=== PATIENT | female | born 1935 | race Caucasian/White ===

== ENCOUNTER 2019-03-13 17:42 | Emergency (ER) | payer MEDICARE ==
[~2019-03-13] VITALS: Ht 172.7 cm; Wt 76.5 kg
[~2019-03-13 17:42] MED LIST: ALPR1TAB PO; CELE200C PO; COU1T PO; DILT240C90 PO; FLEC100T PO; LEVO50TA8 PO; SERT100T10 PO; WARF4TAB69 PF
--- NOTE | 2019-03-13 19:07 | NUR ---
PT HERE WITH C/O RLE EDEMA (AT 4+) AND WEEPING, HAS HAD FOR "WEEKS", ALSO HAD APPROX ONE YEAR AGO AND PMD RECOMMENDED COMPRESSION STOCKINGS FOR CHRONIC LE VASCULAR INSUFFICIENCY. LLE ALSO EDEMATOUS WITH 1-2+ PITTING EDEMA.
[2019-03-13 21:07] LABS: ALANINE AMINOTRANSFERASE 21 U/L (12-78); ALBUMIN 3.4 G/DL (3.4-5.0); ALBUMIN/GLOBULIN RATIO 1.1 (1.1-1.5); ALKALINE PHOSPHATASE 74 IU/L (46-116); ANION GAP 9 (8-16); ASPARTATE AMINO TRANSFERASE 20 U/L (10-37); BILIRUBIN,TOTAL 0.4 MG/DL (0.1-1.0); BLOOD UREA NITROGEN 33 MG/DL (7-18); BUN/CREATININE RATIO 29.2 (6.6-38.0); CALCIUM 8.9 MG/DL (8.5-10.1); CHLORIDE 105 MMOL/L (99-107); CREATININE 1.13 MG/DL (0.40-0.90); GLUCOSE 91 MG/DL (70-104); SODIUM 140 MMOL/L (135-145); TOTAL CARBON DIOXIDE 25.9 MMOL/L (24-32); TOTAL PROTEIN 6.5 G/DL (6.4-8.2); eGFR 46 ML/MIN
[2019-03-13 21:25] LABS: BASOPHILS # (AUTO) 0.1 X10'3 (0-0.2); BASOPHILS % (AUTO) 1.2 % (0-1); EOSINOPHILS # (AUTO) 0.4 X10'3 (0-0.9); EOSINOPHILS % (AUTO) 4.8 % (0-6); HEMATOCRIT 38.4 % (35.0-45.0); HEMOGLOBIN 12.5 g/dl (12.0-16.0); LYMPHOCYTES # (AUTO) 1.9 X10'3 (1.1-4.8); MEAN CORPUSCULAR HEMOGLOBIN 29.8 PG (27.0-31.0); MEAN CORPUSCULAR HGB CONC 32.6 g/dL (33.0-36.5); MEAN CORPUSCULAR VOLUME 91.3 FL (78-98); MEAN PLATELET VOLUME 8.7 FL (7.4-10.4); MONOCYTES # (AUTO) 0.8 X10'3 (0-0.9); MONOCYTES % (AUTO) 9.1 % (2-12); NEUTROPHILS # (AUTO) 5.9 X10'3 (1.8-7.7); NEUTROPHILS % (AUTO) 63.9 % (42-75); PLATELET COUNT 185 X10'3 (140-440); RED CELL DISTRIBUTION WIDTH 13.6 % (11.5-14.5); WHITE BLOOD COUNT 9.2 X10'3 (4.5-11.0)
[2019-03-13] MEDS ORDERED: CEPH-572 PO (23:04)
[2019-03-13 23:11] VITALS: BP 160/73
== END 2019-03-13 23:12 | disposition home or self-care (01) ==
LOC: ER 17:43
DX: L03.115 Cellulitis of right lower limb (principal); I48.91 Unspecified atrial fibrillation; G89.29 Other chronic pain; M54.9 Dorsalgia, unspecified; Z86.73 Personal history of transient ischemic attack (TIA), and cerebral infarction without residual deficits
CPT/HCPCS: 36415; 80053; 85025; 93971; 99284

== ENCOUNTER 2019-03-17 17:18 | Emergency (ER) | payer MEDICARE ==
[~2019-03-17] VITALS: Ht 172.7 cm; Wt 68.0 kg
[~2019-03-17 17:18] MED LIST changes: +CEPH-572 PO
[2019-03-17 20:45] LABS: BASOPHILS # (AUTO) 0.1 X10'3 (0-0.2); EOSINOPHILS # (AUTO) 0.3 X10'3 (0-0.9); EOSINOPHILS % (AUTO) 3.7 % (0-6); HEMATOCRIT 39.1 % (35.0-45.0); HEMOGLOBIN 12.9 g/dl (12.0-16.0); LYMPHOCYTES # (AUTO) 1.6 X10'3 (1.1-4.8); LYMPHOCYTES % (AUTO) 17.5 % (21-51); MEAN CORPUSCULAR HEMOGLOBIN 29.8 PG (27.0-31.0); MEAN CORPUSCULAR HGB CONC 32.9 g/dL (33.0-36.5); MEAN CORPUSCULAR VOLUME 90.5 FL (78-98); MEAN PLATELET VOLUME 8.5 FL (7.4-10.4); MONOCYTES # (AUTO) 0.9 X10'3 (0-0.9); MONOCYTES % (AUTO) 9.4 % (2-12); NEUTROPHILS # (AUTO) 6.3 X10'3 (1.8-7.7); NEUTROPHILS % (AUTO) 68.4 % (42-75); PLATELET COUNT 183 X10'3 (140-440); RED BLOOD COUNT 4.33 X10'6 (4.20-5.60); RED CELL DISTRIBUTION WIDTH 13.7 % (11.5-14.5); WHITE BLOOD COUNT 9.1 X10'3 (4.5-11.0)
[2019-03-17 20:55] LABS: ALANINE AMINOTRANSFERASE 24 U/L (12-78); ALBUMIN 3.4 G/DL (3.4-5.0); ALBUMIN/GLOBULIN RATIO 1.1 (1.1-1.5); ALKALINE PHOSPHATASE 76 IU/L (46-116); ANION GAP 8 (8-16); ASPARTATE AMINO TRANSFERASE 21 U/L (10-37); BILIRUBIN,TOTAL 0.4 MG/DL (0.1-1.0); BLOOD UREA NITROGEN 28 MG/DL (7-18); CALCIUM 9.1 MG/DL (8.5-10.1); CHLORIDE 104 MMOL/L (99-107); CREATININE 1.27 MG/DL (0.40-0.90); GLUCOSE 90 MG/DL (70-104); MAGNESIUM 1.9 MG/DL (1.5-2.4); POTASSIUM 4.1 MMOL/L (3.5-5.1); SODIUM 140 MMOL/L (135-145); TOTAL CARBON DIOXIDE 28.2 MMOL/L (24-32); TOTAL PROTEIN 6.6 G/DL (6.4-8.2); eGFR 40 ML/MIN
[2019-03-17 21:05] LABS: D-DIMER 0.27 MG/L FEU (0-0.50)
[2019-03-17] MEDS ORDERED: SULF1TAB49 PO ×2 (21:05→21:15)
[2019-03-17 21:29] VITALS: BP 138/61
== END 2019-03-17 21:47 | disposition home or self-care (01) ==
LOC: ER 17:20
DX: L03.115 Cellulitis of right lower limb (principal); R60.0 Localized edema; N28.9 Disorder of kidney and ureter, unspecified; Z86.73 Personal history of transient ischemic attack (TIA), and cerebral infarction without residual deficits; I48.91 Unspecified atrial fibrillation; G89.29 Other chronic pain; Z90.49 Acquired absence of other specified parts of digestive tract; Z79.01 Long term (current) use of anticoagulants; Z79.899 Other long term (current) drug therapy; Z60.2 Problems related to living alone
CPT/HCPCS: 36415; 80053; 83605; 83735; 84145; 85025; 85379; 87040; 99284

== ENCOUNTER 2019-03-25 18:56 | Inpatient (IN) | payer MEDICARE ==
[~2019-03-25] VITALS: Ht 172.7 cm; Wt 85.7 kg
[~2019-03-25 18:56] MED LIST changes: -CEPH-572 PO; +SULF1TAB49 PO
[2019-03-25] MEDS ORDERED: CefTRIAXone 2gm/D5W 50ml 50 ML IV ONE (19:55)
[2019-03-25 20:33] LABS: BASOPHILS # (AUTO) 0.1 X10'3 (0-0.2); BASOPHILS % (AUTO) 0.8 % (0-1); EOSINOPHILS # (AUTO) 0.4 X10'3 (0-0.9); EOSINOPHILS % (AUTO) 4.3 % (0-6); HEMATOCRIT 36.7 % (35.0-45.0); HEMOGLOBIN 12.5 g/dl (12.0-16.0); LYMPHOCYTES # (AUTO) 1.2 X10'3 (1.1-4.8); LYMPHOCYTES % (AUTO) 14.2 % (21-51); MEAN CORPUSCULAR HEMOGLOBIN 30.5 PG (27.0-31.0); MEAN CORPUSCULAR VOLUME 89.6 FL (78-98); MEAN PLATELET VOLUME 8.6 FL (7.4-10.4); MONOCYTES # (AUTO) 0.8 X10'3 (0-0.9); MONOCYTES % (AUTO) 9.5 % (2-12); NEUTROPHILS # (AUTO) 6.1 X10'3 (1.8-7.7); NEUTROPHILS % (AUTO) 71.2 % (42-75); PLATELET COUNT 183 X10'3 (140-440); RED CELL DISTRIBUTION WIDTH 13.5 % (11.5-14.5); WHITE BLOOD COUNT 8.5 X10'3 (4.5-11.0)
[2019-03-25 20:48] LABS: ALANINE AMINOTRANSFERASE 25 U/L (12-78); ALBUMIN 3.6 G/DL (3.4-5.0); ALBUMIN/GLOBULIN RATIO 1.1 (1.1-1.5); ALKALINE PHOSPHATASE 85 IU/L (46-116); ANION GAP 10 (8-16); ASPARTATE AMINO TRANSFERASE 23 U/L (10-37); BILIRUBIN,TOTAL 0.3 MG/DL (0.1-1.0); BLOOD UREA NITROGEN 37 MG/DL (7-18); BUN/CREATININE RATIO 20.9 (6.6-38.0); CALCIUM 9.2 MG/DL (8.5-10.1); CHLORIDE 102 MMOL/L (99-107); CREATININE 1.77 MG/DL (0.40-0.90); GLUCOSE 90 MG/DL (70-104); POTASSIUM 4.4 MMOL/L (3.5-5.1); SODIUM 136 MMOL/L (135-145); TOTAL PROTEIN 6.9 G/DL (6.4-8.2); eGFR 28 ML/MIN
[2019-03-25 21:06] LABS: INR 3.7 INR; PARTIAL THROMBOPLASTIN TIME 61 SECONDS (22-32)
[2019-03-25] MEDS ORDERED: docusate sod 100mg capsule PO PRN (21:15)
[2019-03-25] MEDS ORDERED: levoFLOXACIN-Levaquin 750MG/D5 150 ML IV ONE (21:15)
[2019-03-25] MEDS ORDERED: HYDROcodone/acetaminophen 10/325mg tab PO PRN (21:15)
[2019-03-25] MEDS ORDERED: HYDROcodone/acetaminophen 5mg/325mg tablet PO PRN (21:15)
[2019-03-25] MEDS ORDERED: magnesium 2GM in 50ml NS 50 ML IV PRN (21:15)
[2019-03-25] MEDS ORDERED: mag hydrox/Alum hydrox/simeth 30ml oral suspension PO PRN (21:15)
[2019-03-25] MEDS ORDERED: potassium Cl 20 mEq SR tablet PO PRN ×2 (21:15)
[2019-03-25] MEDS ORDERED: magnesium Cl slow-release 64mg tablet PO PRN (21:15)
[2019-03-25] MEDS ORDERED: potassium Cl 40MEQ/NS 500ml 500 ML IV PRN ×2 (21:15)
[2019-03-25] MEDS ORDERED: magnesium 4gm in 100ml NS 100 ML IV PRN (21:15)
[2019-03-25] MEDS ORDERED: acetaminophen 325mg tablet PO PRN ×2 (21:15)
[2019-03-25] MEDS ORDERED: ondansetron/PF 4mg/2ml inj IV PRN (21:15)
[2019-03-25 22:30] VITALS: BP 101/56
--- NOTE | 2019-03-25 22:30 | NUR ---
Patient was admitted to the unit from Ed. Patient has been ambulating to to toilet with walker and the vital signs are within normal limits. Patient reports no pain and is resting.
[2019-03-25] MEDS ORDERED: COU3T PO (23:30)
[2019-03-25] MEDS ORDERED: normal saline 1000ml 1,000 ML IV SCH (23:45)
[2019-03-26] MEDS: methylPREDNISolone sod succ 125mg/2ml vial IV SCH ×4 (00:33→15:54)
[2019-03-26] MEDS: normal saline 1000ml 1,000 ML IV SCH ×3 (00:34→12:14)
--- NOTE | 2019-03-26 01:20 | NUR ---
Photos of the affected limbs were taking and the affected areas were marked.
[2019-03-26] MEDS: fluconazole 100mg tablet PO SCH ×2 (01:32→07:47)
[2019-03-26] MEDS ORDERED: diltiazem CD 120mg capsule (once-daily) PO ONE (01:50)
[2019-03-26] MEDS ORDERED: flecainide 50mg tablet PO ONE (01:50)
[2019-03-26] MEDS: ALPRAZolam 0.5mg tablet PO PRN ×2 (01:54→09:42)
[2019-03-26 02:43] LABS: CLARITY,URINE CLEAR (Clear); COLOR,URINE YELLOW (Yellow); GLUCOSE, URINE NEGATIVE (Neg); KETONES,URINE NEGATIVE (Neg); LEUKOCYTE ESTERASE ,URINE NEGATIVE (Neg); NITRITES, URINE NEGATIVE (Neg); OCCULT BLOOD,URINE TRACE-INTACT (Neg); PH,URINE 5.5 (4.8-8.0); PROTEIN,URINE NEGATIVE (Neg); UROBILINOGEN,URINE 0.2 E.U/dL (0.2-1.0)
[2019-03-26 02:58] LABS: UA COLLECTION TYPE VOIDED
[2019-03-26 03:00] VITALS: BP 108/64
[2019-03-26 03:00] LABS: BACTERIA,URINE NONE SEEN /HPF (Neg); RBC,URINE NONE SEEN /HPF (0-2); SQUAMOUS EPITHELIAL CELL,UR FEW /LPF (FEW); WBC,URINE 0-4 /HPF (0-4)
[2019-03-26 05:21] LABS: BASOPHILS % (AUTO) 0.7 % (0-1); EOSINOPHILS # (AUTO) 0.1 X10'3 (0-0.9); EOSINOPHILS % (AUTO) 1.4 % (0-6); HEMATOCRIT 35.2 % (35.0-45.0); HEMOGLOBIN 11.7 g/dl (12.0-16.0); LYMPHOCYTES # (AUTO) 0.6 X10'3 (1.1-4.8); LYMPHOCYTES % (AUTO) 9.3 % (21-51); MEAN CORPUSCULAR HEMOGLOBIN 30.1 PG (27.0-31.0); MEAN CORPUSCULAR HGB CONC 33.4 g/dL (33.0-36.5); MEAN CORPUSCULAR VOLUME 90.3 FL (78-98); MEAN PLATELET VOLUME 8.7 FL (7.4-10.4); MONOCYTES # (AUTO) 0.1 X10'3 (0-0.9); MONOCYTES % (AUTO) 1.8 % (2-12); NEUTROPHILS # (AUTO) 5.9 X10'3 (1.8-7.7); NEUTROPHILS % (AUTO) 86.8 % (42-75); PLATELET COUNT 169 X10'3 (140-440); RED BLOOD COUNT 3.89 X10'6 (4.20-5.60); RED CELL DISTRIBUTION WIDTH 13.7 % (11.5-14.5); WHITE BLOOD COUNT 6.8 X10'3 (4.5-11.0)
[2019-03-26 05:34] LABS: ALANINE AMINOTRANSFERASE 23 U/L (12-78); ALBUMIN/GLOBULIN RATIO 0.9 (1.1-1.5); ALKALINE PHOSPHATASE 76 IU/L (46-116); ANION GAP 9 (8-16); ASPARTATE AMINO TRANSFERASE 21 U/L (10-37); BILIRUBIN,TOTAL 0.3 MG/DL (0.1-1.0); BLOOD UREA NITROGEN 32 MG/DL (7-18); BUN/CREATININE RATIO 21.3 (6.6-38.0); CALCIUM 9.3 MG/DL (8.5-10.1); CHLORIDE 105 MMOL/L (99-107); GLUCOSE 127 MG/DL (70-104); POTASSIUM 4.4 MMOL/L (3.5-5.1); SODIUM 139 MMOL/L (135-145); TOTAL CARBON DIOXIDE 24.6 MMOL/L (24-32); TOTAL PROTEIN 6.2 G/DL (6.4-8.2); eGFR 33 ML/MIN
--- NOTE | 2019-03-26 06:22 | NUR ---
Problems reprioritized. Patient report given to Georgina WALLACE, questions answered & plan of care reviewed with Sydnie WALLACE. Patient is resting.
--- NOTE | 2019-03-26 06:53 | NUR ---
Patient in room [facility] 356. I have received report from DEVIN WALLACE and had the opportunity to ask questions and assume patient care.
[2019-03-26 07:00] VITALS: BP 109/50
[2019-03-26] MEDS: CefTRIAXone/D5W-Rocephin 1gm 50 ML IV SCH (07:45)
[2019-03-26] MEDS: levoTHYROXINE 25mcg tablet PO SCH (07:46)
[2019-03-26] MEDS: flecainide 50mg tablet PO SCH ×2 (07:46→20:33)
[2019-03-26] MEDS: diltiazem CD 120mg capsule (once-daily) PO SCH ×2 (07:47→20:34)
[2019-03-26] MEDS ORDERED: sertraline 50mg tablet PO SCH ×2 (08:00→10:50)
[2019-03-26] MEDS ORDERED: diltiazem CD 120mg capsule (once-daily) PO SCH (08:00)
[2019-03-26] MEDS: K and/or MAG REPLACEMENT MC SCH (08:00)
[2019-03-26] MEDS ORDERED: SERT50TA10 PO (08:15)
[2019-03-26] MEDS ORDERED: ALPR1TAB7 PO (08:15)
[2019-03-26] MEDS ORDERED: GABA-530 PO (08:22)
[2019-03-26 09:45] LABS: INR 3.1 INR
--- NOTE | 2019-03-26 10:02 | NUR ---
patient c/o anxiety given xanax as per emar. will continue to monitor
[2019-03-26 11:27] VITALS: BP 118/70
[2019-03-26] MEDS: gabapentin 100mg capsule PO SCH ×2 (13:41→20:32)
--- NOTE | 2019-03-26 18:30 | NUR ---
Patient in room [facility] 356. I have received report from Georgina WALLACE and had the opportunity to ask questions and assume patient care.
--- NOTE | 2019-03-26 18:30 | NUR ---
Patient in room [facility] 356. I have received report from RODRIGO Erickson and had the opportunity to ask questions and assume patient care with RODRIGO Ramesh. Pt resting in room, no complaints. Addendum: 03/27/19 at 0009 by Aziza Reynoso RN Amended: Links added.
--- NOTE | 2019-03-26 18:31 | NUR ---
Problems reprioritized. Patient report given, questions answered & plan of care reviewed with Zachary WALLACE.
[2019-03-26 20:00] VITALS: BP 108/75
[2019-03-26] MEDS ORDERED: non-formulary drug (Alprazolam 1 MG) PO SCH (20:00)
[2019-03-26 20:30] VITALS: BP 126/62
[2019-03-26] MEDS: lactobacillus rhamnosus 10,000 MMU CELLS/CAPSULE PO SCH (20:31)
[2019-03-26] MEDS: ALPRAZolam 0.5mg tablet PO SCH (20:33)
[2019-03-27] VITALS: BP 129/43
[2019-03-27] MEDS: methylPREDNISolone sod succ 125mg/2ml vial IV SCH ×2 (00:11→08:53)
[2019-03-27] MEDS: normal saline 1000ml 1,000 ML IV SCH ×3 (00:26→23:26)
[2019-03-27 04:12] LABS: OCCULT BLOOD STOOL NEGATIVE (Neg)
[2019-03-27 04:52] LABS: BASOPHILS % (AUTO) 0.1 % (0-1); EOSINOPHILS % (AUTO) 0 % (0-6); HEMATOCRIT 32.3 % (35.0-45.0); HEMOGLOBIN 10.7 g/dl (12.0-16.0); LYMPHOCYTES # (AUTO) 0.8 X10'3 (1.1-4.8); LYMPHOCYTES % (AUTO) 6.7 % (21-51); MEAN CORPUSCULAR HEMOGLOBIN 30.1 PG (27.0-31.0); MEAN CORPUSCULAR HGB CONC 33.3 g/dL (33.0-36.5); MEAN CORPUSCULAR VOLUME 90.3 FL (78-98); MONOCYTES # (AUTO) 0.2 X10'3 (0-0.9); MONOCYTES % (AUTO) 1.8 % (2-12); NEUTROPHILS # (AUTO) 10.9 X10'3 (1.8-7.7); NEUTROPHILS % (AUTO) 91.4 % (42-75); PLATELET COUNT 164 X10'3 (140-440); RED BLOOD COUNT 3.57 X10'6 (4.20-5.60); RED CELL DISTRIBUTION WIDTH 13.8 % (11.5-14.5); WHITE BLOOD COUNT 11.9 X10'3 (4.5-11.0)
--- NOTE | 2019-03-27 05:00 | NUR ---
AGREE WITH NURSING ASSESSMENT. Addendum: 03/27/19 at 0642 by Aziza Reynoso RN Amended: Links added.
[2019-03-27 05:14] LABS: ALANINE AMINOTRANSFERASE 33 U/L (12-78); ALBUMIN 2.9 G/DL (3.4-5.0); ALBUMIN/GLOBULIN RATIO 0.9 (1.1-1.5); ALKALINE PHOSPHATASE 67 IU/L (46-116); ANION GAP 10 (8-16); ASPARTATE AMINO TRANSFERASE 29 U/L (10-37); BILIRUBIN,TOTAL 0.3 MG/DL (0.1-1.0); BLOOD UREA NITROGEN 32 MG/DL (7-18); BUN/CREATININE RATIO 26.2 (6.6-38.0); CALCIUM 8.4 MG/DL (8.5-10.1); CHLORIDE 104 MMOL/L (99-107); CREATININE 1.22 MG/DL (0.40-0.90); GLUCOSE 191 MG/DL (70-104); POTASSIUM 4.2 MMOL/L (3.5-5.1); SODIUM 137 MMOL/L (135-145); TOTAL CARBON DIOXIDE 22.7 MMOL/L (24-32); eGFR 42 ML/MIN
[2019-03-27 05:23] LABS: INR 2.3 INR
--- NOTE | 2019-03-27 06:35 | NUR ---
Problems reprioritized. Patient report given, questions answered & plan of care reviewed with Ofe WALLACE.
[2019-03-27 07:00] VITALS: BP 125/51
[2019-03-27] MEDS ORDERED: warfarin 3mg tablet PO SCH (08:00)
[2019-03-27] MEDS ORDERED: levoFLOXACIN 750MG TABLET PO SCH (08:00)
[2019-03-27] MEDS: K and/or MAG REPLACEMENT MC SCH (08:00)
[2019-03-27] MEDS: fluconazole 100mg tablet PO SCH (08:53)
[2019-03-27] MEDS: CefTRIAXone/D5W-Rocephin 1gm 50 ML IV SCH (08:53)
[2019-03-27] MEDS: gabapentin 100mg capsule PO SCH ×3 (08:53→21:21)
[2019-03-27] MEDS: ALPRAZolam 0.5mg tablet PO SCH ×2 (08:53→20:22)
[2019-03-27] MEDS: flecainide 50mg tablet PO SCH ×2 (08:54→20:22)
[2019-03-27] MEDS: lactobacillus rhamnosus 10,000 MMU CELLS/CAPSULE PO SCH ×2 (08:54→20:22)
[2019-03-27] MEDS: levoTHYROXINE 25mcg tablet PO SCH (08:54)
[2019-03-27] MEDS: diltiazem CD 120mg capsule (once-daily) PO SCH ×2 (08:54→20:22)
[2019-03-27 12:12] VITALS: BP 123/52
[2019-03-27] MEDS: sertraline 50mg tablet PO SCH (14:59)
--- NOTE | 2019-03-27 18:11 | NUR ---
Problems reprioritized. Patient report given, questions answered & plan of care reviewed with Sydnie Richter
--- NOTE | 2019-03-27 18:53 | NUR ---
Patient in room [facility] 356. I have received report from RODRIGO Arzola and had the opportunity to ask questions and assume patient care. Addendum: 03/27/19 at 1854 by Ellie Swain RN Amended: Links added.
[2019-03-27 19:00] VITALS: BP 143/65
[2019-03-27] MEDS: triamcinolone acetonide 0.5% cream 15gm TP SCH (20:00)
[2019-03-27] MEDS ORDERED: warfarin 3mg tablet PO ONE (21:00)
--- NOTE | 2019-03-27 23:01 | NUR ---
Patient in room [facility] 356. I have received report from RODRIGO Villareal and had the opportunity to ask questions and assume patient care.
[2019-03-28 00:27] VITALS: BP 136/61
[2019-03-28 05:26] LABS: BASOPHILS % (AUTO) 0.1 % (0-1); EOSINOPHILS % (AUTO) 0 % (0-6); HEMATOCRIT 32.8 % (35.0-45.0); HEMOGLOBIN 10.9 g/dl (12.0-16.0); LYMPHOCYTES # (AUTO) 0.8 X10'3 (1.1-4.8); LYMPHOCYTES % (AUTO) 4.5 % (21-51); MEAN CORPUSCULAR HEMOGLOBIN 30.1 PG (27.0-31.0); MEAN CORPUSCULAR HGB CONC 33.1 g/dL (33.0-36.5); MEAN CORPUSCULAR VOLUME 91.1 FL (78-98); MEAN PLATELET VOLUME 8.9 FL (7.4-10.4); MONOCYTES # (AUTO) 0.8 X10'3 (0-0.9); MONOCYTES % (AUTO) 4.5 % (2-12); NEUTROPHILS # (AUTO) 15.5 X10'3 (1.8-7.7); NEUTROPHILS % (AUTO) 90.9 % (42-75); PLATELET COUNT 190 X10'3 (140-440); RED BLOOD COUNT 3.61 X10'6 (4.20-5.60); RED CELL DISTRIBUTION WIDTH 13.9 % (11.5-14.5)
[2019-03-28 05:31] LABS: INR 1.9 INR
[2019-03-28 05:57] LABS: ALANINE AMINOTRANSFERASE 35 U/L (12-78); ALBUMIN 2.9 G/DL (3.4-5.0); ALBUMIN/GLOBULIN RATIO 0.9 (1.1-1.5); ALKALINE PHOSPHATASE 65 IU/L (46-116); ANION GAP 10 (8-16); ASPARTATE AMINO TRANSFERASE 25 U/L (10-37); BILIRUBIN,TOTAL 0.2 MG/DL (0.1-1.0); BLOOD UREA NITROGEN 35 MG/DL (7-18); BUN/CREATININE RATIO 28.2 (6.6-38.0); CALCIUM 8.3 MG/DL (8.5-10.1); CHLORIDE 106 MMOL/L (99-107); CREATININE 1.24 MG/DL (0.40-0.90); GLUCOSE 149 MG/DL (70-104); MAGNESIUM 2.1 MG/DL (1.5-2.4); POTASSIUM 4.3 MMOL/L (3.5-5.1); SODIUM 138 MMOL/L (135-145); TOTAL CARBON DIOXIDE 22.3 MMOL/L (24-32); eGFR 42 ML/MIN
--- NOTE | 2019-03-28 06:00 | NUR ---
RECEIVED REORT FROM VIJAY WALLACE
--- NOTE | 2019-03-28 06:36 | NUR ---
Problems reprioritized. Patient report given, questions answered & plan of care reviewed with RODRIGO SETH.
[2019-03-28 07:26] VITALS: BP 144/65
[2019-03-28] MEDS: triamcinolone acetonide 0.5% cream 15gm TP SCH ×2 (08:00→20:02)
[2019-03-28] MEDS: diltiazem CD 120mg capsule (once-daily) PO SCH ×2 (08:00→20:02)
[2019-03-28] MEDS: K and/or MAG REPLACEMENT MC SCH (08:00)
[2019-03-28] MEDS: gabapentin 100mg capsule PO SCH ×3 (09:27→21:03)
[2019-03-28] MEDS: flecainide 50mg tablet PO SCH ×2 (09:27→20:03)
[2019-03-28] MEDS: levoTHYROXINE 25mcg tablet PO SCH (09:27)
[2019-03-28] MEDS: ALPRAZolam 0.5mg tablet PO SCH ×2 (09:27→20:00)
[2019-03-28] MEDS: lactobacillus rhamnosus 10,000 MMU CELLS/CAPSULE PO SCH ×2 (09:27→20:02)
[2019-03-28] MEDS: normal saline 1000ml 1,000 ML IV SCH ×2 (09:28→20:02)
--- NOTE | 2019-03-28 09:37 | NUR ---
SHADI NOT AVAIALABLE FOR THIS PT YET. WILL ADMIN WHEN AVAILABLE.
[2019-03-28 11:00] VITALS: BP 137/62
[2019-03-28] MEDS: sertraline 50mg tablet PO SCH (15:00)
--- NOTE | 2019-03-28 18:31 | NUR ---
Patient in room [facility] 356. I have received report from RODRIGO Manzanares and had the opportunity to ask questions and assume patient care. Addendum: 03/28/19 at 1832 by Ellie Swain RN Amended: Links added.
[2019-03-28 20:00] VITALS: BP 143/58
[2019-03-28] MEDS ORDERED: warfarin 4mg tablet PO ONE (21:00)
[2019-03-28] MEDS: ALPRAZolam 0.5mg tablet PO PRN (21:03)
--- NOTE | 2019-03-28 21:05 | NUR ---
patient scheduled 1999 1MG XANAX refused and only wants to take .5mg, PRN dose given
[2019-03-29] VITALS: BP 128/59
[2019-03-29] MEDS ORDERED: furosemide 20 MG/2 ML vial IV ONE (00:05)
[2019-03-29 00:11] LABS: ABG BASE EXCESS -5.7 mmol/L (-2.0-3.0); ABG HCO3 19.7 mmol/L (22.0-26.0); ABG OXYGEN SATURATION 91.4 % (95-98); ABG PCO2 (T) 38.6 mmHg (32.0-45.0); ABG PH (T) 7.327 (7.350-7.450); ABG PO2 (T) 67.2 mmHg (83-108); ALLEN'S TEST Positive; FCOHb 0.3 % (0.5-1.5); FLOW 2 L/min; FMetHb 0.2 % (0.3-1.12); FO2Hb 90.9 % (94-100); PATIENT TEMPERATURE 37.3; RESPIRATORY RATE (OBSERVED) 18 b/min; TOTAL HEMOGLOBIN 12.4 G/dl (12.0-16.0)
--- NOTE | 2019-03-29 00:45 | NUR ---
pt desatted at 84% on RA and c/o nausea and one time chest pain. Notified Dr. Giles and received orderd and addressed. Pt now resting in bed with O2 still in place at 2L. no c/o chest pain or SOB at this time. Will continue to monitor
[2019-03-29 01:09] LABS: ALANINE AMINOTRANSFERASE 37 U/L (12-78); ALBUMIN 3.1 G/DL (3.4-5.0); ALBUMIN/GLOBULIN RATIO 0.9 (1.1-1.5); ALKALINE PHOSPHATASE 74 IU/L (46-116); ANION GAP 8 (8-16); ASPARTATE AMINO TRANSFERASE 23 U/L (10-37); BILIRUBIN,TOTAL 0.4 MG/DL (0.1-1.0); BLOOD UREA NITROGEN 40 MG/DL (7-18); CALCIUM 8.6 MG/DL (8.5-10.1); CHLORIDE 106 MMOL/L (99-107); CREATININE 1.25 MG/DL (0.40-0.90); GLUCOSE 126 MG/DL (70-104); POTASSIUM 4.3 MMOL/L (3.5-5.1); SODIUM 138 MMOL/L (135-145); TOTAL CARBON DIOXIDE 24.1 MMOL/L (24-32); TOTAL PROTEIN 6.7 G/DL (6.4-8.2); eGFR 41 ML/MIN
[2019-03-29 01:13] LABS: MAGNESIUM 1.8 MG/DL (1.5-2.4); TROPONIN I 0.04 NG/ML (0.0-0.05)
[2019-03-29 01:15] LABS: BASOPHILS % (AUTO) 0.1 % (0-1); EOSINOPHILS % (AUTO) 0.2 % (0-6); HEMATOCRIT 37.5 % (35.0-45.0); HEMOGLOBIN 12.3 g/dl (12.0-16.0); LYMPHOCYTES # (AUTO) 1.2 X10'3 (1.1-4.8); LYMPHOCYTES % (AUTO) 6.3 % (21-51); MEAN CORPUSCULAR HEMOGLOBIN 29.9 PG (27.0-31.0); MEAN CORPUSCULAR HGB CONC 32.7 g/dL (33.0-36.5); MEAN CORPUSCULAR VOLUME 91.5 FL (78-98); MONOCYTES # (AUTO) 1.8 X10'3 (0-0.9); MONOCYTES % (AUTO) 9.6 % (2-12); NEUTROPHILS # (AUTO) 15.7 X10'3 (1.8-7.7); NEUTROPHILS % (AUTO) 83.8 % (42-75); PLATELET COUNT 209 X10'3 (140-440); RED CELL DISTRIBUTION WIDTH 14.1 % (11.5-14.5); WHITE BLOOD COUNT 18.8 X10'3 (4.5-11.0)
[2019-03-29 01:18] LABS: INR 2.4 INR
--- NOTE | 2019-03-29 06:40 | NUR ---
Problems reprioritized. Patient report given, questions answered & plan of care reviewed with RODRIGO GALLO.
[2019-03-29 07:00] LABS: ALBUMIN 2.8 G/DL (3.4-5.0); ANION GAP 6 (8-16); BLOOD UREA NITROGEN 36 MG/DL (7-18); BUN/CREATININE RATIO 30.3 (6.6-38.0); CALCIUM 8.5 MG/DL (8.5-10.1); CHLORIDE 107 MMOL/L (99-107); CREATININE 1.19 MG/DL (0.40-0.90); GLUCOSE 128 MG/DL (70-104); POTASSIUM 4.3 MMOL/L (3.5-5.1); SODIUM 139 MMOL/L (135-145); TOTAL CARBON DIOXIDE 26.3 MMOL/L (24-32); eGFR 44 ML/MIN
--- NOTE | 2019-03-29 07:00 | NUR ---
Patient in room [facility] 356. I have received report from Sydnie WALLACE and had the opportunity to ask questions and assume patient care.
[2019-03-29 07:10] VITALS: BP 116/53
[2019-03-29] MEDS: K and/or MAG REPLACEMENT MC SCH (07:43)
[2019-03-29] MEDS: ALPRAZolam 0.5mg tablet PO SCH ×2 (08:00→20:53)
[2019-03-29] MEDS: gabapentin 100mg capsule PO SCH ×3 (08:13→20:53)
[2019-03-29] MEDS: lactobacillus rhamnosus 10,000 MMU CELLS/CAPSULE PO SCH ×2 (08:13→20:52)
[2019-03-29] MEDS: diltiazem CD 120mg capsule (once-daily) PO SCH ×2 (08:13→20:00)
[2019-03-29] MEDS: flecainide 50mg tablet PO SCH ×2 (08:13→20:52)
[2019-03-29] MEDS: triamcinolone acetonide 0.5% cream 15gm TP SCH ×2 (08:14→20:52)
[2019-03-29] MEDS: levoTHYROXINE 25mcg tablet PO SCH (08:14)
[2019-03-29] MEDS: ALPRAZolam 0.5mg tablet PO PRN (08:15)
[2019-03-29 11:28] VITALS: BP 109/52
[2019-03-29] MEDS: sertraline 50mg tablet PO SCH (15:07)
--- NOTE | 2019-03-29 18:05 | NUR ---
Problems reprioritized. Patient report given, questions answered & plan of care reviewed with Sydnie WALLACE.
--- NOTE | 2019-03-29 18:08 | NUR ---
Patient in room [facility] 356. I have received report from RODRIGO GALLO and had the opportunity to ask questions and assume patient care. Addendum: 03/29/19 at 1808 by Ellie Swain RN Amended: Links added.
[2019-03-29 20:00] VITALS: BP 93/40
[2019-03-29] MEDS ORDERED: warfarin 1mg tablet PO ONE (21:00)
[2019-03-30] VITALS: BP 124/41
--- NOTE | 2019-03-30 00:53 | NUR ---
patient did have a HR of 37bpm at rest, asymptomatic, BP was 124/41, denies any chest pain or SOB, satting 95% at 2L, notify Dr. Giles and stated to monitor patient.
[2019-03-30 06:05] LABS: BASOPHILS % (AUTO) 0.3 % (0-1); EOSINOPHILS # (AUTO) 0.6 X10'3 (0-0.9); EOSINOPHILS % (AUTO) 6.3 % (0-6); HEMATOCRIT 31.1 % (35.0-45.0); HEMOGLOBIN 10.8 g/dl (12.0-16.0); LYMPHOCYTES % (AUTO) 19.9 % (21-51); MEAN CORPUSCULAR HEMOGLOBIN 31.6 PG (27.0-31.0); MEAN CORPUSCULAR HGB CONC 34.8 g/dL (33.0-36.5); MEAN CORPUSCULAR VOLUME 90.8 FL (78-98); MEAN PLATELET VOLUME 8.9 FL (7.4-10.4); MONOCYTES # (AUTO) 0.9 X10'3 (0-0.9); MONOCYTES % (AUTO) 8.7 % (2-12); NEUTROPHILS # (AUTO) 6.4 X10'3 (1.8-7.7); NEUTROPHILS % (AUTO) 64.8 % (42-75); PLATELET COUNT 166 X10'3 (140-440); RED BLOOD COUNT 3.43 X10'6 (4.20-5.60); RED CELL DISTRIBUTION WIDTH 14.2 % (11.5-14.5); WHITE BLOOD COUNT 9.9 X10'3 (4.5-11.0)
[2019-03-30 06:10] LABS: INR 1.9 INR
--- NOTE | 2019-03-30 06:17 | NUR ---
Problems reprioritized. Patient report given, questions answered & plan of care reviewed with RODRIGO GALLO.
--- NOTE | 2019-03-30 06:20 | NUR ---
Patient in room [facility] 356. I have received report from Sydnie WALLACE and had the opportunity to ask questions and assume patient care.
[2019-03-30 06:29] LABS: ALANINE AMINOTRANSFERASE 25 U/L (12-78); ALBUMIN 2.4 G/DL (3.4-5.0); ALBUMIN/GLOBULIN RATIO 0.8 (1.1-1.5); ALKALINE PHOSPHATASE 55 IU/L (46-116); ANION GAP 4 (8-16); ASPARTATE AMINO TRANSFERASE 17 U/L (10-37); BILIRUBIN,TOTAL 0.4 MG/DL (0.1-1.0); BLOOD UREA NITROGEN 29 MG/DL (7-18); BUN/CREATININE RATIO 29.9 (6.6-38.0); CALCIUM 8.1 MG/DL (8.5-10.1); CHLORIDE 106 MMOL/L (99-107); CREATININE 0.97 MG/DL (0.40-0.90); GLUCOSE 88 MG/DL (70-104); MAGNESIUM 1.9 MG/DL (1.5-2.4); POTASSIUM 4.3 MMOL/L (3.5-5.1); SODIUM 138 MMOL/L (135-145); TOTAL CARBON DIOXIDE 28.5 MMOL/L (24-32); TOTAL PROTEIN 5.6 G/DL (6.4-8.2); eGFR 55 ML/MIN
[2019-03-30 07:26] VITALS: BP 140/68
[2019-03-30] MEDS: K and/or MAG REPLACEMENT MC SCH (07:40)
[2019-03-30] MEDS: levoTHYROXINE 25mcg tablet PO SCH (07:43)
[2019-03-30] MEDS: gabapentin 100mg capsule PO SCH ×3 (07:43→20:02)
[2019-03-30] MEDS: triamcinolone acetonide 0.5% cream 15gm TP SCH ×2 (07:43→19:50)
[2019-03-30] MEDS: diltiazem CD 120mg capsule (once-daily) PO SCH ×2 (07:43→19:50)
[2019-03-30] MEDS: lactobacillus rhamnosus 10,000 MMU CELLS/CAPSULE PO SCH ×2 (07:43→19:51)
[2019-03-30] MEDS: ALPRAZolam 0.5mg tablet PO SCH ×2 (07:43→19:51)
[2019-03-30] MEDS: flecainide 50mg tablet PO SCH ×2 (07:43→19:50)
--- NOTE | 2019-03-30 11:50 | NUR ---
Initial: Pt admit w/ RLE cellulitis PO 75-100% heart healthy diet meeting needs. [facility] 03/28. Will continue to monitor. Rec: 1.continue heart healthy diet 2. wt per rx Addendum: 03/30/19 at [address] Amended: Links added.
[2019-03-30 12:46] VITALS: BP 124/67
[2019-03-30] MEDS: sertraline 50mg tablet PO SCH (15:35)
[2019-03-30 18:00] VITALS: BP 120/54
--- NOTE | 2019-03-30 18:13 | NUR ---
Patient in room [facility] 356A. I have received report from RODRIGO Pichardo and had the opportunity to ask questions and assume patient care. In no apparent distress, resting comfortably on room air. Call light and items of frequent use within reach. Will continue to monitor.
--- NOTE | 2019-03-30 18:29 | NUR ---
Problems reprioritized. Patient report given, questions answered & plan of care reviewed with Shaylee WALLACE.
[2019-03-30] MEDS ORDERED: warfarin 3mg tablet PO ONE (21:00)
[2019-03-31] VITALS: BP 131/71
--- NOTE | 2019-03-31 06:06 | NUR ---
Problems reprioritized. Patient report given, questions answered & plan of care reviewed with RODRIGO Monterroso.
--- NOTE | 2019-03-31 06:07 | NUR ---
Patient in room [facility] 356. I have received report from RODRIGO June and had the opportunity to ask questions and assume patient care.
[2019-03-31 06:25] LABS: INR 1.5 INR
[2019-03-31] MEDS: K and/or MAG REPLACEMENT MC SCH (06:56)
[2019-03-31 07:06] VITALS: BP 140/80
[2019-03-31] MEDS: gabapentin 100mg capsule PO SCH ×3 (08:46→20:05)
[2019-03-31] MEDS: diltiazem CD 120mg capsule (once-daily) PO SCH ×2 (08:46→20:05)
[2019-03-31] MEDS: lactobacillus rhamnosus 10,000 MMU CELLS/CAPSULE PO SCH ×2 (08:46→20:05)
[2019-03-31] MEDS: levoTHYROXINE 25mcg tablet PO SCH (08:47)
[2019-03-31] MEDS: triamcinolone acetonide 0.5% cream 15gm TP SCH ×2 (08:48→20:05)
[2019-03-31] MEDS: flecainide 50mg tablet PO SCH ×2 (08:48→20:05)
[2019-03-31] MEDS: ALPRAZolam 0.5mg tablet PO SCH ×2 (08:48→20:05)
[2019-03-31 12:26] VITALS: BP 123/66
[2019-03-31] MEDS: sertraline 50mg tablet PO SCH (15:37)
--- NOTE | 2019-03-31 18:12 | NUR ---
Problems reprioritized. Patient report given, questions answered & plan of care reviewed with RODRIGO Walker.
[2019-03-31 20:00] VITALS: BP 124/72
[2019-03-31] MEDS ORDERED: warfarin 4mg tablet PO ONE (21:00)
--- NOTE | 2019-03-31 23:26 | NUR ---
Patient in room [facility] 356. I have received report from RODRIGO Monterroso and had the opportunity to ask questions and assume patient care. Addendum: 03/31/19 at 9798 by Dayanara Giles RN Amended: Links added.
[2019-04-01 00:08] VITALS: BP 137/83
[2019-04-01 06:22] LABS: INR 1.6 INR
--- NOTE | 2019-04-01 06:33 | NUR ---
Patient in room [facility] 356. I have received report from Denise WALLACE and had the opportunity to ask questions and assume patient care.
--- NOTE | 2019-04-01 06:36 | NUR ---
Problems reprioritized. Patient report given, questions answered & plan of care reviewed with RODRIGO Agrawal. Addendum: 04/01/19 at 0637 by Dayanara Giles RN Amended: Links added.
[2019-04-01 07:00] VITALS: BP 131/87
[2019-04-01] MEDS: K and/or MAG REPLACEMENT MC SCH (08:00)
[2019-04-01] MEDS: diltiazem CD 120mg capsule (once-daily) PO SCH (08:23)
[2019-04-01] MEDS: gabapentin 100mg capsule PO SCH ×2 (08:23→13:11)
[2019-04-01] MEDS: lactobacillus rhamnosus 10,000 MMU CELLS/CAPSULE PO SCH (08:23)
[2019-04-01] MEDS: flecainide 50mg tablet PO SCH (08:24)
[2019-04-01] MEDS: levoTHYROXINE 25mcg tablet PO SCH (08:24)
[2019-04-01] MEDS: ALPRAZolam 0.5mg tablet PO SCH (08:25)
[2019-04-01] MEDS: triamcinolone acetonide 0.5% cream 15gm TP SCH (08:25)
[2019-04-01 11:00] VITALS: BP 107/60
--- NOTE | 2019-04-01 13:50 | NUR ---
Spoke to patient after walking with patient and stated this nurse suggests home health to visit her to help her out and that this nurse doesn't feel comfortable her going home without assistance. Patient disagreed and states that she is ready to go home. Made supervisor propellant charge loading aware of this. Patient refused home health services. Eager to go home. Pleaded with patient to be careful and to reactivate her emergency response bracelet in case she falls again at home. Patient attempted to call Yuly and Alen (support system) with no reponse. This nurse will call and let them know shes on going home.
--- NOTE | 2019-04-01 14:00 | NUR ---
Discharged patient at this time, discussed discharge instructions, patient verbalizes understanding. IV removed, cath intact. Escorted out via W/C per [facility] staff. Eager to go home. Patient needs home health services but refused to this nurse. Called patient's contacts to make them aware of her discharging so they can check on her.
== END 2019-04-01 14:04 | disposition home or self-care (01) | DRG 602 ==
LOC: ER 18:57 → SUR 3N 21:15 → CMPBEDREQ 23:08
PROVIDERS: ADMIT Family Medicine; ATTEND Family Medicine
DX: L03.115 Cellulitis of right lower limb (principal); N17.0 Acute kidney failure with tubular necrosis; I69.351 Hemiplegia and hemiparesis following cerebral infarction affecting right dominant side; N18.3 Chronic kidney disease, stage 3 (moderate); E03.9 Hypothyroidism, unspecified; Z96.642 Presence of left artificial hip joint; G89.29 Other chronic pain; M54.9 Dorsalgia, unspecified; F41.1 Generalized anxiety disorder; I35.0 Nonrheumatic aortic (valve) stenosis; T38.0X5A Adverse effect of glucocorticoids and synthetic analogues, initial encounter; I45.81 Long QT syndrome; I48.91 Unspecified atrial fibrillation; Z80.6 Family history of leukemia; Z80.0 Family history of malignant neoplasm of digestive organs; Z83.3 Family history of diabetes mellitus; Z87.891 Personal history of nicotine dependence; Z90.49 Acquired absence of other specified parts of digestive tract; Z79.890 Hormone replacement therapy; Z87.19 Personal history of other diseases of the digestive system; Y92.89 Other specified places as the place of occurrence of the external cause
CPT/HCPCS: 36415; 36600; 71045; 80048; 80053; 81001; 82272; 82803; 83605; 83735; 84145; 84443; 84484; 85018; 85025; 85610; 85730; 87040; 87070; 93005; 93306; 96365; 99285; G0378; J0696; J1940; J1956; J2405; J2930; J7030

== ENCOUNTER 2019-04-06 05:58 | Emergency (ER) | payer MEDICARE ==
[~2019-04-06] VITALS: Ht 172.7 cm; Wt 85.9 kg
[~2019-04-06 05:58] MED LIST changes: -ALPR1TAB PO; +ALPR1TAB7 PO; -COU1T PO; +COU3T PO; +GABA-530 PO; -SERT100T10 PO; +SERT50TA10 PO; -SULF1TAB49 PO; -WARF4TAB69 PF
[2019-04-06] MEDS ORDERED: normal saline 1000ML IV soln IVB ONE (06:25)
[2019-04-06 06:56] LABS: BASOPHILS # (AUTO) 0.1 X10'3 (0-0.2); BASOPHILS % (AUTO) 0.9 % (0-1); EOSINOPHILS # (AUTO) 0.3 X10'3 (0-0.9); EOSINOPHILS % (AUTO) 3.1 % (0-6); HEMOGLOBIN 11.7 g/dl (12.0-16.0); LYMPHOCYTES % (AUTO) 10.7 % (21-51); MEAN CORPUSCULAR HEMOGLOBIN 30.2 PG (27.0-31.0); MEAN CORPUSCULAR HGB CONC 33.4 g/dL (33.0-36.5); MEAN CORPUSCULAR VOLUME 90.5 FL (78-98); MONOCYTES # (AUTO) 0.7 X10'3 (0-0.9); MONOCYTES % (AUTO) 7.3 % (2-12); NEUTROPHILS # (AUTO) 7.1 X10'3 (1.8-7.7); PLATELET COUNT 253 X10'3 (140-440); RED BLOOD COUNT 3.87 X10'6 (4.20-5.60); RED CELL DISTRIBUTION WIDTH 13.5 % (11.5-14.5); WHITE BLOOD COUNT 9.1 X10'3 (4.5-11.0)
--- NOTE | 2019-04-06 07:05 | NUR ---
CELLULITIS BILAT LOWER EXTREMS, WORSE ON THE RIGHT. STATES SHE WAS IN THE HOSPITAL LAST WEEK INPATIENT FOR TREATMENT OF THE CELLULITIS. STATES SHE WAS FEELING WEAK AND UNABLE TO BEAR WEIGHT ON LEGS EARLIER THIS MORNING, BUT SHE IS FEELING A LITTLE STRONGER AT THIS TIME. UP TO BEDSIDE COMMODE WITH MINIMAL ASSIST TO URINATE. SMALL ECCHYMOTIC AREA NOTED TO TOP OF RIGHT FOOT. A&O X 4.
[2019-04-06 07:11] LABS: ALANINE AMINOTRANSFERASE 23 U/L (12-78); ALBUMIN 3.4 G/DL (3.4-5.0); ALKALINE PHOSPHATASE 72 IU/L (46-116); ANION GAP 10 (8-16); ASPARTATE AMINO TRANSFERASE 21 U/L (10-37); BILIRUBIN,TOTAL 0.4 MG/DL (0.1-1.0); BLOOD UREA NITROGEN 37 MG/DL (7-18); BUN/CREATININE RATIO 27.4 (6.6-38.0); CALCIUM 9.2 MG/DL (8.5-10.1); CHLORIDE 104 MMOL/L (99-107); CREATININE 1.35 MG/DL (0.40-0.90); GLUCOSE 119 MG/DL (70-104); POTASSIUM 3.8 MMOL/L (3.5-5.1); SODIUM 141 MMOL/L (135-145); TOTAL CARBON DIOXIDE 27.4 MMOL/L (24-32); TOTAL PROTEIN 6.8 G/DL (6.4-8.2); eGFR 38 ML/MIN
[2019-04-06 07:12] LABS: CLARITY,URINE CLEAR (Clear); COLOR,URINE YELLOW (Yellow); GLUCOSE, URINE NEGATIVE (Neg); KETONES,URINE NEGATIVE (Neg); LEUKOCYTE ESTERASE ,URINE NEGATIVE (Neg); NITRITES, URINE NEGATIVE (Neg); OCCULT BLOOD,URINE NEGATIVE (Neg); PH,URINE 5.5 (4.8-8.0); PROTEIN,URINE NEGATIVE (Neg); UROBILINOGEN,URINE 0.2 E.U/dL (0.2-1.0)
[2019-04-06 07:17] LABS: UA COLLECTION TYPE CLN CATCH MIDSTREAM
[2019-04-06 07:21] LABS: MAGNESIUM 2.2 MG/DL (1.5-2.4)
[2019-04-06 08:47] VITALS: BP 127/50
--- NOTE | 2019-04-06 09:50 | NUR ---
DEPARTED FROM ER LOBBY, VIA WHEELCHAIR, TO PRIVATE AUTO, IN GOOD CONDITION. ALL BELONGINGS TAKEN WITH PATIENT.
== END 2019-04-06 09:59 | disposition home or self-care (01) ==
LOC: ER 05:59
DX: R53.1 Weakness (principal); I48.91 Unspecified atrial fibrillation; L03.115 Cellulitis of right lower limb; N18.9 Chronic kidney disease, unspecified; G89.29 Other chronic pain; Z86.73 Personal history of transient ischemic attack (TIA), and cerebral infarction without residual deficits; Z90.49 Acquired absence of other specified parts of digestive tract; Z98.890 Other specified postprocedural states; Z79.01 Long term (current) use of anticoagulants; Z79.899 Other long term (current) drug therapy
CPT/HCPCS: 36415; 71045; 80053; 81003; 83605; 83735; 84145; 84439; 84443; 85025; 87040; 93005; 99284; J7030

== ENCOUNTER 2019-04-06 17:56 | Inpatient (IN) | payer MEDICARE ==
[~2019-04-06] VITALS: Ht 172.7 cm; Wt 84.8 kg
--- NOTE | 2019-04-06 18:26 | NUR ---
covering carlyn rns lunch, pts c/c of ankle pain after fall has changed from left to right twice now. states "the food here is amazing, will i be going upstairs now?"
[2019-04-06] MEDS ORDERED: magnesium 4gm in 100ml NS 100 ML IV PRN (20:20)
[2019-04-06] MEDS ORDERED: potassium Cl 40MEQ/NS 500ml 500 ML IV PRN (20:20)
[2019-04-06] MEDS ORDERED: HYDROcodone/acetaminophen 5mg/325mg tablet PO PRN (20:20)
[2019-04-06] MEDS ORDERED: potassium CL 10mEq/100ml bag 100 ML IV PRN (20:20)
[2019-04-06] MEDS ORDERED: magnesium hydroxide 30ml (MOM) UD suspension PO PRN (20:20)
[2019-04-06] MEDS ORDERED: magnesium Cl slow-release 64mg tablet PO PRN (20:20)
[2019-04-06] MEDS ORDERED: ondansetron/PF 4mg/2ml inj IV PRN (20:20)
[2019-04-06] MEDS ORDERED: acetaminophen 325mg tablet PO PRN ×2 (20:20)
[2019-04-06] MEDS ORDERED: magnesium 2GM in 50ml NS 50 ML IV PRN (20:20)
[2019-04-06] MEDS ORDERED: bisacodyl 10mg suppository rectal RC PRN (20:20)
[2019-04-06] MEDS ORDERED: mag hydrox/Alum hydrox/simeth 30ml oral suspension PO PRN (20:20)
[2019-04-06] MEDS ORDERED: potassium Cl 20 mEq SR tablet PO PRN ×2 (20:20)
[2019-04-06] MEDS: normal saline 1000ml 1,000 ML IV SCH (20:46)
[2019-04-06] MEDS ORDERED: temazepam 15mg capsule PO PRN (21:00)
[2019-04-06] MEDS ORDERED: gabapentin 100mg capsule PO SCH (21:00)
[2019-04-06 21:20] VITALS: BP 121/64
--- NOTE | 2019-04-06 21:20 | NUR ---
Pt arrived from the ED on a gurney with all her belongings. she stated she could not scoot over from the gurney to the bed. She was transferred with a slide board.Pt oriented to room, bed, and call light. VS stable. No C/O dizziness. Pt educated to use call light for assistance to BSC. Will continue to monitor.
[2019-04-06 22:01] LABS: INR 3.2 INR
--- NOTE | 2019-04-06 22:10 | NUR ---
pt states she does not want two Xanax pills she only wants one or a half of one. She is unsure of her dosage at home. Her pharmacy med rec shows she is on 1 mg daily. She states she dose not take them that way. She likes half a pill in the am and half in the pm. She will address her dosage with MD in the morning.
[2019-04-06] MEDS ORDERED: CefTRIAXone/D5W-Rocephin 1gm 50 ML IV ONE (22:55)
[2019-04-06] MEDS ORDERED: ALPRAZolam 0.5mg tablet PO ONE (23:05)
[2019-04-07 03:00] VITALS: BP 120/57
[2019-04-07 06:00] VITALS: BP 134/55
--- NOTE | 2019-04-07 06:05 | NUR ---
Patient in room PCU 3018. I have received report from Nhung WALLACE and had the opportunity to ask questions and assume patient care.
[2019-04-07 06:11] LABS: HEMATOCRIT 28.9 % (35.0-45.0); HEMOGLOBIN 9.9 g/dl (12.0-16.0); MEAN CORPUSCULAR HEMOGLOBIN 30.6 PG (27.0-31.0); MEAN CORPUSCULAR HGB CONC 34.2 g/dL (33.0-36.5); MEAN CORPUSCULAR VOLUME 89.6 FL (78-98); PLATELET COUNT 203 X10'3 (140-440); RED BLOOD COUNT 3.23 X10'6 (4.20-5.60); RED CELL DISTRIBUTION WIDTH 13.6 % (11.5-14.5); WHITE BLOOD COUNT 10.5 X10'3 (4.5-11.0)
[2019-04-07 06:25] LABS: ALBUMIN 2.6 G/DL (3.4-5.0); ANION GAP 5 (8-16); BLOOD UREA NITROGEN 23 MG/DL (7-18); BUN/CREATININE RATIO 22.3 (6.6-38.0); CALCIUM 8.2 MG/DL (8.5-10.1); CHLORIDE 108 MMOL/L (99-107); CREATININE 1.03 MG/DL (0.40-0.90); GLUCOSE 101 MG/DL (70-104); INR 3.4 INR; MAGNESIUM 1.8 MG/DL (1.5-2.4); PHOSPHORUS 2.3 MG/DL (2.3-4.5); POTASSIUM 3.6 MMOL/L (3.5-5.1); SODIUM 141 MMOL/L (135-145); TOTAL CARBON DIOXIDE 27.8 MMOL/L (24-32); eGFR 51 ML/MIN
--- NOTE | 2019-04-07 06:49 | NUR ---
Problems reprioritized. Patient report given, questions answered & plan of care reviewed with Benedict WALLACE.
[2019-04-07] MEDS ORDERED: levoTHYROXINE 25mcg tablet PO SCH (07:00)
[2019-04-07 08:00] VITALS: BP_SYST 120; BP_SYST 128; BP_SYST 134; BP_DIAS 52; BP_DIAS 55; BP_DIAS 60
[2019-04-07] MEDS ORDERED: ALPRAZolam 0.5mg tablet PO SCH ×2 (08:00→20:00)
[2019-04-07] MEDS ORDERED: diltiazem CD 120mg capsule (once-daily) PO SCH (08:00)
[2019-04-07] MEDS ORDERED: sertraline 50mg tablet PO SCH (08:00)
[2019-04-07] MEDS ORDERED: gabapentin 100mg capsule PO SCH (08:00)
[2019-04-07] MEDS ORDERED: enoxaparin 40mg/0.4ml syringe SUBCUT SCH (08:00)
[2019-04-07] MEDS ORDERED: warfarin 3mg tablet PO SCH (08:00)
[2019-04-07] MEDS ORDERED: K and/or MAG REPLACEMENT MC SCH (08:00)
[2019-04-07] MEDS ORDERED: CefTRIAXone/D5W-Rocephin 1gm 50 ML IV SCH (08:00)
[2019-04-07] MEDS ORDERED: flecainide 50mg tablet PO SCH (08:00)
[2019-04-07] MEDS ORDERED: celeCOXIB 100mg capsule PO SCH (08:00)
--- NOTE | 2019-04-07 08:30 | NUR ---
Per DR. FINCH orders, Cancel Carotid Ultra sound.
[2019-04-07] MEDS ORDERED: ALPRAZolam 0.25mg tablet PO ONE (08:45)
[2019-04-07] MEDS: normal saline 1000ml 1,000 ML IV SCH ×2 (08:51→16:44)
[2019-04-07 11:00] VITALS: BP 120/52
[2019-04-07 15:00] VITALS: BP 116/56
--- NOTE | 2019-04-07 16:50 | NUR ---
Pt transfered to [facility]. Telebox removed and returned to [facility]. Pts belongings sent with Pt. Sharon transfered Pt via wheel chair to [facility] to transfer van. Pt reposrt called to [facility] and [facility]. Pt left [facility] at 1651
[2019-04-07] MEDS ORDERED: lactobacillus rhamnosus 10,000 MMU CELLS/CAPSULE PO SCH (20:00)
== END 2019-04-07 16:51 | DRG 948 ==
LOC: ER 17:57 → PCU 3S 21:10 → OBSVTOIN 21:10
PROVIDERS: ADMIT Family Medicine; ATTEND Internal Medicine
DX: R53.1 Weakness (principal); L03.115 Cellulitis of right lower limb; I69.351 Hemiplegia and hemiparesis following cerebral infarction affecting right dominant side; D63.8 Anemia in other chronic diseases classified elsewhere; E03.9 Hypothyroidism, unspecified; F41.1 Generalized anxiety disorder; I44.0 Atrioventricular block, first degree; I45.81 Long QT syndrome; I48.0 Paroxysmal atrial fibrillation; K57.90 Diverticulosis of intestine, part unspecified, without perforation or abscess without bleeding; Z96.642 Presence of left artificial hip joint; Z66 Do not resuscitate; Z60.2 Problems related to living alone; G89.29 Other chronic pain; W18.39XA Other fall on same level, initial encounter; M54.9 Dorsalgia, unspecified; R01.1 Cardiac murmur, unspecified; N18.9 Chronic kidney disease, unspecified; Z79.01 Long term (current) use of anticoagulants; Z79.899 Other long term (current) drug therapy; Y93.89 Activity, other specified; Y92.098 Other place in other non-institutional residence as the place of occurrence of the external cause; Y99.8 Other external cause status; Z83.3 Family history of diabetes mellitus; Z80.0 Family history of malignant neoplasm of digestive organs; Z80.6 Family history of leukemia
CPT/HCPCS: 36415; 70450; 73610; 80048; 83735; 84100; 85027; 85610; 87070; 97110; 97116; 97162; 99285; G0378; J0696; J7030

== ENCOUNTER 2021-06-21 11:02 | Day surgery (SDC) | payer MEDICARE ==
[2021-06-17 15:26] LABS: BASOPHILS # (AUTO) 0.1 X10'3 (0-0.2); BASOPHILS % (AUTO) 1.1 % (0-1); EOSINOPHILS # (AUTO) 0.2 X10'3 (0-0.9); EOSINOPHILS % (AUTO) 2.7 % (0-6); HEMATOCRIT 37.1 % (35.0-45.0); HEMOGLOBIN 12.5 g/dl (12.0-16.0); LYMPHOCYTES # (AUTO) 1.7 X10'3 (1.1-4.8); LYMPHOCYTES % (AUTO) 24.1 % (21-51); MEAN CORPUSCULAR HEMOGLOBIN 30.8 PG (27.0-31.0); MEAN CORPUSCULAR HGB CONC 33.9 g/dL (33.0-36.5); MEAN PLATELET VOLUME 9.2 FL (7.4-10.4); MONOCYTES # (AUTO) 0.7 X10'3 (0-0.9); MONOCYTES % (AUTO) 9.8 % (2-12); NEUTROPHILS # (AUTO) 4.5 X10'3 (1.8-7.7); NEUTROPHILS % (AUTO) 62.3 % (42-75); PLATELET COUNT 139 X10'3 (140-440); RED BLOOD COUNT 4.07 X10'6 (4.20-5.60); RED CELL DISTRIBUTION WIDTH 14.3 % (11.5-14.5); WHITE BLOOD COUNT 7.2 X10'3 (4.5-11.0)
[2021-06-17 15:36] LABS: ALBUMIN 3.5 G/DL (3.4-5.0); ANION GAP 8 (8-16); BLOOD UREA NITROGEN 32 MG/DL (7-18); BUN/CREATININE RATIO 26.9 (6.6-38.0); CALCIUM 8.8 MG/DL (8.5-10.1); CHLORIDE 106 MMOL/L (99-107); CREATININE 1.19 MG/DL (0.40-0.90); GLUCOSE 86 MG/DL (70-104); POTASSIUM 4.5 MMOL/L (3.5-5.1); SODIUM 143 MMOL/L (135-145); TOTAL CARBON DIOXIDE 29.1 MMOL/L (24-32); eGFR 43 ML/MIN
[2021-06-17 15:39] LABS: PARTIAL THROMBOPLASTIN TIME 38 SECONDS (22-32)
[~2021-06-21] VITALS: Ht 170.2 cm; Wt 73.9 kg
[2021-06-21] VITALS (8 sets, daily range): BP systolic 114–139; BP diastolic 65–79
[~2021-06-21 11:02] MED LIST changes: +SERT-433 PO; -SERT50TA10 PO
[2021-06-21] MEDS ORDERED: LORazepam 0.5 MG tablet PO PRN (11:30)
[2021-06-21] MEDS ORDERED: diphenhydrAMINE 25mg capsule PO PRN (11:30)
[2021-06-21] MEDS ORDERED: LIDOcaine/PRILOcaine 5gm cream TP ONE (11:30)
[2021-06-21] MEDS ORDERED: normal saline 1,000 ML IV SCH (11:30)
[2021-06-21] MEDS ORDERED: midazolam 1 mg/ML 2ml injection ONE (11:51)
[2021-06-21] MEDS ORDERED: fentaNYL/PF 50MCG/1 ML 2ML syringe ONE (11:51)
[2021-06-21] MEDS ORDERED: iohexol 350MG/ML 100ml bottle IV ONE (11:51)
[2021-06-21] MEDS ORDERED: heparin 1,000unit/ml 10ml vial 10 ML ONE (11:51)
[2021-06-21] MEDS ORDERED: LIDOcaine 1% (10mg/ml)w/preservative injection 20ml MDV ONE (11:51)
[2021-06-21] MEDS ORDERED: LOP25T PO (12:17)
[2021-06-21] MEDS ORDERED: metamucil (12:17)
[2021-06-21] MEDS ORDERED: ENOX100S3 SQ (12:17)
[2021-06-21] MEDS ORDERED: DILT120C52 PO (12:17)
== END 2021-06-21 16:20 | disposition home or self-care (01) ==
LOC: SSTAY O 11:02
PROVIDERS: ATTEND Internal Medicine Interventional Cardiology
DX: I35.0 Nonrheumatic aortic (valve) stenosis (principal); I25.10 Atherosclerotic heart disease of native coronary artery without angina pectoris; I10 Essential (primary) hypertension; E03.9 Hypothyroidism, unspecified; I48.0 Paroxysmal atrial fibrillation; I36.1 Nonrheumatic tricuspid (valve) insufficiency; E78.5 Hyperlipidemia, unspecified; I65.23 Occlusion and stenosis of bilateral carotid arteries; Z79.899 Other long term (current) drug therapy; Z79.01 Long term (current) use of anticoagulants; Z86.73 Personal history of transient ischemic attack (TIA), and cerebral infarction without residual deficits
CPT/HCPCS: 36415; 80048; 85025; 85610; 85730; 93005; 93454; 99152; C1769; J1644; J2001; J2250; J3010; Q0163; Q9967; A4620; A6258

== ENCOUNTER 2021-08-10 12:28 | Outpatient (CLI) | payer MEDICARE ==
[~2021-08-10] VITALS: Ht 167.6 cm; Wt 74.8 kg
[~2021-08-10 12:28] MED LIST changes: +DILT120C52 PO; -DILT240C90 PO; +ENOX100S3 SQ; -FLEC100T PO; -LEVO50TA8 PO; +LOP25T PO; +metamucil
[2021-08-10 13:08] LABS: BASOPHILS # (AUTO) 0.1 X10'3 (0-0.2); BASOPHILS % (AUTO) 1.1 % (0-1); EOSINOPHILS # (AUTO) 0.2 X10'3 (0-0.9); EOSINOPHILS % (AUTO) 2.1 % (0-6); HEMATOCRIT 36.8 % (35.0-45.0); HEMOGLOBIN 12.4 g/dl (12.0-16.0); LYMPHOCYTES # (AUTO) 1.4 X10'3 (1.1-4.8); LYMPHOCYTES % (AUTO) 18.9 % (21-51); MEAN CORPUSCULAR HEMOGLOBIN 31.3 PG (27.0-31.0); MEAN CORPUSCULAR HGB CONC 33.7 g/dL (33.0-36.5); MEAN CORPUSCULAR VOLUME 92.7 FL (78-98); MONOCYTES # (AUTO) 0.7 X10'3 (0-0.9); MONOCYTES % (AUTO) 9.6 % (2-12); NEUTROPHILS % (AUTO) 68.3 % (42-75); PLATELET COUNT 148 X10'3 (140-440); RED BLOOD COUNT 3.97 X10'6 (4.20-5.60); RED CELL DISTRIBUTION WIDTH 13.9 % (11.5-14.5); WHITE BLOOD COUNT 7.4 X10'3 (4.5-11.0)
[2021-08-10 13:20] LABS: PARTIAL THROMBOPLASTIN TIME 39 SECONDS (22-32)
[2021-08-10 13:21] LABS: ALANINE AMINOTRANSFERASE 26 U/L (12-78); ALBUMIN 3.7 G/DL (3.4-5.0); ALBUMIN/GLOBULIN RATIO 1.2 (1.1-1.5); ALKALINE PHOSPHATASE 64 IU/L (46-116); ANION GAP 11 (8-16); ASPARTATE AMINO TRANSFERASE 23 U/L (10-37); BILIRUBIN,TOTAL 0.7 MG/DL (0.1-1.0); BLOOD UREA NITROGEN 32 MG/DL (7-18); BUN/CREATININE RATIO 27.6 (6.6-38.0); CALCIUM 8.6 MG/DL (8.5-10.1); CHLORIDE 110 MMOL/L (99-107); CREATININE 1.16 MG/DL (0.40-0.90); GLUCOSE 77 MG/DL (70-104); POTASSIUM 4.5 MMOL/L (3.5-5.1); SODIUM 147 MMOL/L (135-145); TOTAL CARBON DIOXIDE 25.9 MMOL/L (24-32); TOTAL PROTEIN 6.7 G/DL (6.4-8.2); eGFR 45 ML/MIN
[2021-08-10] MEDS ORDERED: albuterol 2.5 MG/3 ML nebule NEB PRN (13:30)
[2021-08-10] MEDS ORDERED: IODIXANOL 320 MG/ML INFUS..BTL 100ML IV ONE (15:12)
[2021-08-10] MEDS ORDERED: iohexol 350 MG/ML 50ML vial IV ONE (15:13)
[2021-08-10] MEDS ORDERED: iohexol 350MG/ML 100ml bottle IV ONE (19:28)
== END 2021-08-10 23:59 | disposition home or self-care (01) ==
LOC: RAD 12:28
PROVIDERS: ATTEND Internal Medicine Cardiovascular Disease
DX: R94.2 Abnormal results of pulmonary function studies (principal); I51.7 Cardiomegaly; I35.0 Nonrheumatic aortic (valve) stenosis; R06.02 Shortness of breath; I65.29 Occlusion and stenosis of unspecified carotid artery; I70.0 Atherosclerosis of aorta
CPT/HCPCS: 36415; 71046; 71275; 74174; 80053; 85025; 85610; 85730; 94060; 94727; 94729; 94760; Q9967

== ENCOUNTER 2021-08-11 15:56 | Outpatient (CLI) | payer MEDICARE ==
[~2021-08-11] VITALS: Ht 167.6 cm; Wt 75.6 kg
--- NOTE | 2021-08-11 18:56 | NUR ---
Patient was in the TAVR clinic today to consult with Dr. Travis and Dr. Vines. KCCQ12 completed. Walk test was not completed, her leg/knee prevented her from performing. Vital signs measured. Patient education reviewed and questions answered.
[2021-08-11 18:57] VITALS: BP 116/70
== END 2021-08-11 23:59 | disposition home or self-care (01) ==
LOC: TAVR 15:56
PROVIDERS: ATTEND Internal Medicine Cardiovascular Disease
DX: Z20.822 Contact with and (suspected) exposure to COVID-19 (principal)
CPT/HCPCS: 87635; C9803

== ENCOUNTER 2021-08-18 05:58 | Inpatient (IN) | payer MEDICARE ==
[2021-08-15 17:03] LABS: UA COLLECTION TYPE CLN CATCH MIDSTREAM
[2021-08-15 17:04] LABS: CLARITY,URINE SLIGHTLY CLOUDY (Clear); COLOR,URINE STRAW (Yellow); GLUCOSE, URINE NEGATIVE (Neg); KETONES,URINE TRACE mg/dl (Neg); LEUKOCYTE ESTERASE ,URINE NEGATIVE (Neg); NITRITES, URINE NEGATIVE (Neg); OCCULT BLOOD,URINE NEGATIVE (Neg); PROTEIN,URINE NEGATIVE (Neg); SQUAMOUS EPITHELIAL CELL,UR FEW /LPF (FEW); UROBILINOGEN,URINE 0.2 E.U/dL (0.2-1.0)
[2021-08-15 17:05] LABS: HYALINE CASTS 0-3 /LPF (NEGATIVE); MUCUS STRANDS FEW /LPF (Neg); TRANSITIONAL EPI CELLS,URINE FEW /HPF
[2021-08-15 17:06] LABS: BACTERIA,URINE FEW /HPF (Neg); RBC,URINE 0-2 /HPF (0-2); WBC,URINE 0-4 /HPF (0-4)
[2021-08-18] VITALS (20 sets, daily range): BP systolic 92–161; BP diastolic 51–96
[~2021-08-18] VITALS: Ht 167.6 cm; Wt 74.8 kg
[2021-08-18] MEDS: nitroPRUSSIDE (NIPRIDE) (200MCG/ML) 100ML Drip IV SCH ×2 (05:30→23:19)
[~2021-08-18 05:58] MED LIST changes: +FLEC100T PO; +LEVO50TA8 PO; +aspirin 325mg tablet PO ONE; +cefazolin/dext.iso 2gm/100ml IV ONE; +famotidine 20mg tablet PO ONE; +ondansetron/PF 4mg/2ml inj IV PRN; +phenylephrine 50 MG in NS 250ml IVPB IV SCH; +ringers solution, lacted 1,000 ML IV SCH; +vancomycin 1,500 MG in NS 300ml IV soln IV ONE
[2021-08-18] MEDS ORDERED: protamine sulfate 10mg/ml inj. ONE (06:42)
[2021-08-18] MEDS ORDERED: LIDOcaine 1% (10mg/ml) 2ml vial ONE (06:47)
[2021-08-18] MEDS: phenylephrine inj 50 MG in normal saline 250ml IV soln 245 ML IV SCH (06:50)
[2021-08-18 07:28] LABS: PARTIAL THROMBOPLASTIN TIME 54 SECONDS (22-32)
--- NOTE | 2021-08-18 08:30 | NUR ---
PRINCESS FOUND B;LEEDING FROM FEMORAL SITE RIGHT, PROFUSLY, BLOOD SATURATED DRESSING AND GOWN.fEMSTOP IN PLACE, CALLED EDUARDO FOR FURTHER INSTRUCTION. WILL HOLD PRESSURE WITH FEMSTOP UNTIL 2200, THEN SANDBAG. IF FEM SITESTILL BLEEDING, WILL CALL ANDREEA AT THAT TIME FOR FURTHER INSTRUCTION. CAROLANN WALLACE
[2021-08-18] MEDS ORDERED: iohexol 350 MG/ML 50ML vial IV ONE (09:08)
[2021-08-18] MEDS ORDERED: LIDOcaine 1% (10mg/ml)w/preservative injection 20ml MDV ONE (09:08)
[2021-08-18] MEDS ORDERED: heparin 1,000 UNITS/NS 500ml 1,500 ML ONE (09:08)
[2021-08-18] MEDS ORDERED: iohexol 350MG/ML 100ml bottle IV ONE (09:08)
[2021-08-18] MEDS ORDERED: fentaNYL/PF 50MCG/1 ML 2ML syringe ONE (09:22)
[2021-08-18] MEDS ORDERED: midazolam 1 mg/ML 2ml injection ONE (09:22)
[2021-08-18] MEDS ORDERED: propofol inj 20 ML IV ONE ×2 (09:23)
[2021-08-18] MEDS ORDERED: potassium Cl 40MEQ/1/2NS 520ml 520 ML IV PRN (09:35)
[2021-08-18] MEDS ORDERED: diphenhydrAMINE 25mg capsule PO PRN (09:35)
[2021-08-18] MEDS ORDERED: potassium CL 10mEq/100ml bag 100 ML IV PRN (09:35)
[2021-08-18] MEDS ORDERED: labetalol 20mg/4ml (5mg/ml) syringe IV PRN (09:35)
[2021-08-18] MEDS ORDERED: hydrALAZINE 20mg/ml inj. IV PRN (09:35)
[2021-08-18] MEDS ORDERED: magnesium 2GM in 50ml NS 50 ML IV PRN (09:35)
[2021-08-18] MEDS ORDERED: pantoprazole 40mg Tablet.DR PO PRN (09:35)
[2021-08-18] MEDS: normal saline 1000ml 1,000 ML IV SCH ×2 (09:35→22:24)
[2021-08-18] MEDS ORDERED: ondansetron/PF 4mg/2ml inj IV PRN ×2 (09:35→10:10)
[2021-08-18] MEDS ORDERED: magnesium 4gm in 100ml NS 100 ML IV PRN (09:35)
[2021-08-18] MEDS ORDERED: docusate sod 100mg capsule PO PRN (09:35)
[2021-08-18] MEDS ORDERED: potassium Cl 20 mEq SR tablet PO PRN (09:35)
[2021-08-18] MEDS ORDERED: acetaminophen 325mg tablet PO PRN (09:35)
[2021-08-18] MEDS ORDERED: heparin 1,000unit/ml 10ml vial 10 ML ONE (09:41)
[2021-08-18] MEDS ORDERED: furosemide 40mg/4ml inj ONE (10:00)
[2021-08-18] MEDS ORDERED: morphine 4 MG/ML inj SYRINge IV PRN (10:10)
[2021-08-18] MEDS ORDERED: ringers solution, lacted 1,000 ML IV SCH (10:10)
[2021-08-18] MEDS ORDERED: proCHLORperazine 10 MG/2 ml inj IV PRN (10:10)
[2021-08-18] MEDS ORDERED: meperidine/PF 25mg/ml syringe IV PRN ×3 (10:10)
[2021-08-18] MEDS ORDERED: morphine 2 MG/ML inj. syringe IV PRN (10:10)
--- NOTE | 2021-08-18 10:52 | NUR ---
Received from OR via ORTHO BED , accompanied by Anesthesiologist MER and report given by Anesthesiolgist. PATIENT WITH 18G PIV IN LEFT UE.; 10L MASK ON WITH 100% SATURATIONS. DENIES PAIN AT THIS TIME. LEFT INGUINAL SITE IS CDI NO DRAINAGE. SOFT. RIGHT SIDE IS SAME LEFT . NO DRAINAGE PRESENT. + DPS BILAT ON FEET VIA DOPPLER. Addendum: 08/18/21 at 1109 by Jonel Stauffer RN, RN Amended: Links added.
--- NOTE | 2021-08-18 12:12 | NUR ---
Report called to receiving nurse. Transferred via BED WITH ONE BAG OF LABELED Belongings . Special Issues communicated to receiving nurse ADAL. VSS. DENIES PAIN RIGHT INGUINAL SITE RESATURATED WITH BLOOD. RODRIGO GAELAS APPLIED PRESSURE X3 MINUTES AND DONNED A NEW SET OF 2X2S. PATIENT WITH + DPS BILATERALLY. TATE CATHETER WITH CLEAR YELLOW URINE PRESENT IN [facility]. STILL NEUROLOGICALLY INTACT. CARE ASSUMED BY RODRIGO GALEAS. Addendum: 08/18/21 at 1235 by Jonel Zuniga - RODRIGO WALLACE Amended: Links added.
[2021-08-18] MEDS: gabapentin 100mg capsule PO SCH ×2 (13:29→21:32)
[2021-08-18 14:50] LABS: ALANINE AMINOTRANSFERASE 26 U/L (12-78); ALBUMIN 3.8 G/DL (3.4-5.0); ALBUMIN/GLOBULIN RATIO 1.3 (1.1-1.5); ALKALINE PHOSPHATASE 67 IU/L (46-116); ANION GAP 11 (8-16); ASPARTATE AMINO TRANSFERASE 24 U/L (10-37); BILIRUBIN,TOTAL 0.6 MG/DL (0.1-1.0); BLOOD UREA NITROGEN 27 MG/DL (7-18); BUN/CREATININE RATIO 23.7 (6.6-38.0); CALCIUM 9.3 MG/DL (8.5-10.1); CHLORIDE 103 MMOL/L (99-107); CREATININE 1.14 MG/DL (0.40-0.90); GLUCOSE 103 MG/DL (70-104); POTASSIUM 3.6 MMOL/L (3.5-5.1); SODIUM 142 MMOL/L (135-145); TOTAL CARBON DIOXIDE 27.9 MMOL/L (24-32); TOTAL PROTEIN 6.8 G/DL (6.4-8.2); eGFR 46 ML/MIN
[2021-08-18] MEDS ORDERED: metoprolol tartrate 25mg tablet PO ONE (14:55)
[2021-08-18] MEDS: celeCOXIB 100mg capsule PO SCH (15:07)
[2021-08-18] MEDS: sod chloride 0.9% 10ml flush syringe IV SCH (15:58)
[2021-08-18] MEDS: ceFAZolin 1GM/D5W- ADD-VANTAGE 50 ML IV SCH (15:58)
--- NOTE | 2021-08-18 17:33 | NUR ---
PT SATURATED 2 DRESSINGS WHEN A FEMSTOP WAS APPLIED. A THIRD DRESSING WAS PLACED AND THE FEM STOP REMOVED. THE THIRD DRESSING WAS SATURATED, DRESSING REPLACED AND FEMSTOP PLACED.
--- NOTE | 2021-08-18 18:00 | NUR ---
Patient in room PCU 3014. I have received report from Yuly WALLACE and had the opportunity to ask questions and assume patient care.
--- NOTE | 2021-08-18 18:22 | NUR ---
Problems reprioritized. Patient report given, questions answered & plan of care reviewed with RODRIGO SHANNON.
[2021-08-18] MEDS ORDERED: furosemide 40mg/4ml inj IV ONE (19:10)
[2021-08-18] MEDS ORDERED: ALPRAZolam 0.5mg tablet PO PRN (19:10)
[2021-08-18] MEDS ORDERED: warfarin 3mg tablet PO SCH (21:00)
[2021-08-18] MEDS: vancomycin/NS 1 GM ADD-VANTAGE 250 ML IV SCH (21:12)
[2021-08-18] MEDS: metoprolol tartrate 25mg tablet PO SCH (21:21)
[2021-08-19] VITALS: BP 108/60
[2021-08-19] MEDS: ceFAZolin 1GM/D5W- ADD-VANTAGE 50 ML IV SCH ×2 (00:18→08:43)
[2021-08-19] MEDS: sod chloride 0.9% 10ml flush syringe IV SCH ×3 (00:18→16:14)
[2021-08-19 02:00] VITALS: BP 109/56
[2021-08-19 04:00] VITALS: BP 112/45
--- NOTE | 2021-08-19 04:33 | NUR ---
PATIENT GROIN SITE FOUND TO BE OOZING-FEMSTOP REPLACED, AM LABS TO BE DRAWN, ANDREEA WILL REEVALUATE WHEN ROUNDING IN AM.
[2021-08-19] MEDS: phenylephrine inj 50 MG in normal saline 250ml IV soln 245 ML IV SCH (05:07)
[2021-08-19] MEDS: normal saline 1000ml 1,000 ML IV SCH (05:41)
[2021-08-19 06:00] VITALS: BP 111/59
--- NOTE | 2021-08-19 06:44 | NUR ---
Problems reprioritized. Patient report given, questions answered & plan of care reviewed with ARAVIND WALLACE.
[2021-08-19 06:58] LABS: BASOPHILS # (AUTO) 0.1 X10'3 (0-0.2); BASOPHILS % (AUTO) 0.7 % (0-1); EOSINOPHILS # (AUTO) 0.2 X10'3 (0-0.9); HEMATOCRIT 36.3 % (35.0-45.0); HEMOGLOBIN 12.1 g/dl (12.0-16.0); LYMPHOCYTES # (AUTO) 1.4 X10'3 (1.1-4.8); LYMPHOCYTES % (AUTO) 14.2 % (21-51); MEAN CORPUSCULAR HEMOGLOBIN 31.1 PG (27.0-31.0); MEAN CORPUSCULAR HGB CONC 33.3 g/dL (33.0-36.5); MEAN CORPUSCULAR VOLUME 93.5 FL (78-98); MEAN PLATELET VOLUME 9.4 FL (7.4-10.4); MONOCYTES % (AUTO) 10.1 % (2-12); PLATELET COUNT 118 X10'3 (140-440); RED BLOOD COUNT 3.88 X10'6 (4.20-5.60); RED CELL DISTRIBUTION WIDTH 13.8 % (11.5-14.5); WHITE BLOOD COUNT 9.6 X10'3 (4.5-11.0)
[2021-08-19] MEDS ORDERED: levoTHYROXINE 25mcg tablet PO SCH (07:00)
[2021-08-19 07:24] LABS: ALANINE AMINOTRANSFERASE 20 U/L (12-78); ALBUMIN 3.2 G/DL (3.4-5.0); ALBUMIN/GLOBULIN RATIO 1.1 (1.1-1.5); ALKALINE PHOSPHATASE 58 IU/L (46-116); ANION GAP 8 (8-16); ASPARTATE AMINO TRANSFERASE 27 U/L (10-37); BILIRUBIN,TOTAL 0.6 MG/DL (0.1-1.0); BLOOD UREA NITROGEN 29 MG/DL (7-18); BUN/CREATININE RATIO 21.5 (6.6-38.0); CALCIUM 8.7 MG/DL (8.5-10.1); CHLORIDE 102 MMOL/L (99-107); CREATININE 1.35 MG/DL (0.40-0.90); GLUCOSE 95 MG/DL (70-104); MAGNESIUM 1.9 MG/DL (1.5-2.4); POTASSIUM 3.4 MMOL/L (3.5-5.1); SODIUM 140 MMOL/L (135-145); TOTAL CARBON DIOXIDE 30.5 MMOL/L (24-32); TOTAL PROTEIN 6.2 G/DL (6.4-8.2); eGFR 37 ML/MIN
[2021-08-19] MEDS ORDERED: sertraline 50mg tablet PO SCH (08:00)
[2021-08-19] MEDS ORDERED: diltiazem CD 120mg capsule (once-daily) PO SCH (08:00)
[2021-08-19] MEDS ORDERED: flecainide 50mg tablet PO SCH (08:00)
[2021-08-19] MEDS: metoprolol tartrate 25mg tablet PO SCH (08:39)
[2021-08-19] MEDS: gabapentin 100mg capsule PO SCH ×2 (08:39→14:00)
[2021-08-19] MEDS: vancomycin/NS 1 GM ADD-VANTAGE 250 ML IV SCH (08:39)
[2021-08-19] MEDS: celeCOXIB 100mg capsule PO SCH (08:43)
--- NOTE | 2021-08-19 10:52 | NUR ---
Communicated with Ava CARROLL regarding right arm weakness. States he will communicate with Dr. Brar.
[2021-08-19 11:00] VITALS: BP 91/57
--- NOTE | 2021-08-19 12:30 | NUR ---
Physician made aware of physical therapist suggestion
--- NOTE | 2021-08-19 14:00 | NUR ---
Communicated with Alen (caregiver), states she will get here as soon as she can to pick patient up for discharge
[2021-08-19 15:00] VITALS: BP 98/48
[2021-08-19] MEDS ORDERED: ondansetron 4mg rapidly disintigrating tab PO PRN (17:15)
--- NOTE | 2021-08-19 19:01 | NUR ---
Discharge instructions given to patient and neighbor/caregiver (Alen). Both verbalized understandings. PIV removed with catheter intact. All belongings sent home with patient. Patient transferred off unit via wheelchair to neighbors car.
[2021-08-19] MEDS ORDERED: warfarin 3mg tablet PO SCH (21:00)
== END 2021-08-19 18:30 | disposition home or self-care (01) | DRG 266 ==
LOC: PAS IN 05:58 → UNDOADMIN 05:58 → EDSTATUS 08:30 → UNDOADMIN 09:33 → PAS IN 09:33 → PCU 3S 12:30 → PAS IN 12:30
PROVIDERS: ADMIT Internal Medicine Cardiovascular Disease; ATTEND Internal Medicine Cardiovascular Disease
PROC: B24BZZ4 Ultrasonography of Heart with Aorta, Transesophageal (ICD-10-PCS; 2021-08-18)
PROC: B41D1ZZ Fluoroscopy of Aorta and Bilateral Lower Extremity Arteries using Low Osmolar Contrast (ICD-10-PCS; 2021-08-18)
PROC: 02RF38Z Replacement of Aortic Valve with Zooplastic Tissue, Percutaneous Approach (ICD-10-PCS; principal; 2021-08-18 09:24)
DX: I35.0 Nonrheumatic aortic (valve) stenosis (principal); Z00.6 Encounter for examination for normal comparison and control in clinical research program; I50.33 Acute on chronic diastolic (congestive) heart failure; I48.20 Chronic atrial fibrillation, unspecified; I11.0 Hypertensive heart disease with heart failure; Z86.73 Personal history of transient ischemic attack (TIA), and cerebral infarction without residual deficits
CPT/HCPCS: 33361; 36415; 71045; 80053; 81001; 82948; 83735; 83880; 85025; 85347; 85610; 85730; 86885; 86900; 86901; 86920; 87081; 93005; 93308; 93926; 97161; 97530; A4314; A4618; A6258; A6449; C1756; C1760; C1769; C1894; G0378; J0360; J0690; J1644; J1940; J2001; J2250; J2704; J2720; J3010; J3370; J7030; J7040; Q9967

== ENCOUNTER 2022-01-18 23:43 | Emergency (ER) | payer MEDICARE ==
[~2022-01-18] VITALS: Ht 170.2 cm; Wt 77.3 kg
[~2022-01-18 23:43] MED LIST changes: -ENOX100S3 SQ; -aspirin 325mg tablet PO ONE; -cefazolin/dext.iso 2gm/100ml IV ONE; -famotidine 20mg tablet PO ONE; -ondansetron/PF 4mg/2ml inj IV PRN; -phenylephrine 50 MG in NS 250ml IVPB IV SCH; -ringers solution, lacted 1,000 ML IV SCH; -vancomycin 1,500 MG in NS 300ml IV soln IV ONE
[2022-01-19 00:48] LABS: ALANINE AMINOTRANSFERASE 22 U/L (12-78); ALBUMIN 3.3 G/DL (3.4-5.0); ALBUMIN/GLOBULIN RATIO 1.1 (1.1-1.5); ALKALINE PHOSPHATASE 66 IU/L (46-116); ANION GAP 9 (8-16); ASPARTATE AMINO TRANSFERASE 21 U/L (10-37); BILIRUBIN,TOTAL 0.4 MG/DL (0.1-1.0); BLOOD UREA NITROGEN 34 MG/DL (7-18); BUN/CREATININE RATIO 27.6 (6.6-38.0); CALCIUM 8.8 MG/DL (8.5-10.1); CHLORIDE 105 MMOL/L (99-107); CREATININE 1.23 MG/DL (0.40-0.90); GLUCOSE 140 MG/DL (70-104); POTASSIUM 4.1 MMOL/L (3.5-5.1); SODIUM 141 MMOL/L (135-145); TOTAL CARBON DIOXIDE 27.2 MMOL/L (24-32); TOTAL PROTEIN 6.2 G/DL (6.4-8.2); eGFR 42 ML/MIN
[2022-01-19 00:55] LABS: MAGNESIUM 1.6 MG/DL (1.5-2.4)
[2022-01-19] MEDS ORDERED: ondansetron 4mg rapidly disintigrating tab PO ONE (01:00)
[2022-01-19 01:21] LABS: BASOPHILS # (AUTO) 0.1 X10'3 (0-0.2); EOSINOPHILS # (AUTO) 0.2 X10'3 (0-0.9); EOSINOPHILS % (AUTO) 3.1 % (0-6); HEMATOCRIT 36.8 % (35.0-45.0); HEMOGLOBIN 12.2 g/dl (12.0-16.0); LYMPHOCYTES # (AUTO) 1.9 X10'3 (1.1-4.8); LYMPHOCYTES % (AUTO) 26.2 % (21-51); MEAN CORPUSCULAR HEMOGLOBIN 30.2 PG (27.0-31.0); MEAN CORPUSCULAR HGB CONC 33.1 g/dL (33.0-36.5); MEAN CORPUSCULAR VOLUME 91.3 FL (78-98); MEAN PLATELET VOLUME 8.9 FL (7.4-10.4); MONOCYTES # (AUTO) 0.8 X10'3 (0-0.9); MONOCYTES % (AUTO) 10.9 % (2-12); NEUTROPHILS # (AUTO) 4.3 X10'3 (1.8-7.7); NEUTROPHILS % (AUTO) 58.8 % (42-75); PLATELET COUNT 144 X10'3 (140-440); RED BLOOD COUNT 4.03 X10'6 (4.20-5.60); RED CELL DISTRIBUTION WIDTH 14.1 % (11.5-14.5); WHITE BLOOD COUNT 7.3 X10'3 (4.5-11.0)
[2022-01-19 01:39] VITALS: BP 106/70
== END 2022-01-19 02:34 | disposition home or self-care (01) ==
LOC: ER 23:44
DX: R55 Syncope and collapse (principal); R42 Dizziness and giddiness; I48.91 Unspecified atrial fibrillation; G89.29 Other chronic pain; F41.9 Anxiety disorder, unspecified; Z95.2 Presence of prosthetic heart valve; Z86.73 Personal history of transient ischemic attack (TIA), and cerebral infarction without residual deficits; Z90.89 Acquired absence of other organs; Z98.890 Other specified postprocedural states; Z60.2 Problems related to living alone; Z79.899 Other long term (current) drug therapy
CPT/HCPCS: 36415; 71045; 80053; 83735; 83880; 84484; 85025; 93005; 99285

== ENCOUNTER 2022-02-02 16:12 | Emergency (ER) | payer MEDICARE ==
[~2022-02-02] VITALS: Ht 170.2 cm; Wt 78.0 kg
[2022-02-02] MEDS ORDERED: ALPRAZolam 0.5mg tablet PO ONE (17:05)
--- NOTE | 2022-02-02 18:47 | NUR ---
Attempted to discharge patient states she needs a walker to walk and left walker in car. No family to get her and no income to pay for ride home.Acting Professor made aware taxi provided, awaiting to locate a walker. discharge hold.
[2022-02-02] MEDS ORDERED: celeCOXIB 100mg capsule PO STA (19:19)
--- NOTE | 2022-02-02 19:36 | NUR ---
VIROLOGIST FOUND [facility] CALLED. ETA 1.5HRS. PATIENT AWARE. GIVEN PO FLUIDS AND FOOD.
[2022-02-02 20:29] VITALS: BP 122/63
== END 2022-02-02 20:34 | disposition home or self-care (01) ==
LOC: ER 16:13
DX: M54.59 Other low back pain (principal); S16.1XXA Strain of muscle, fascia and tendon at neck level, initial encounter; V87.7XXA Person injured in collision between other specified motor vehicles (traffic), initial encounter; Y93.89 Activity, other specified; Y92.89 Other specified places as the place of occurrence of the external cause; Y99.8 Other external cause status; I11.9 Hypertensive heart disease without heart failure; F41.9 Anxiety disorder, unspecified
CPT/HCPCS: 71250; 72125; 74176; 99284

== ENCOUNTER 2022-05-17 10:45 | Emergency (ER) | payer MEDICARE ==
[~2022-05-17] VITALS: Ht 170.2 cm; Wt 79.5 kg
[2022-05-17 13:38] VITALS: BP 156/75
== END 2022-05-17 13:15 | disposition home or self-care (01) ==
LOC: ER 10:45
DX: D68.59 Other primary thrombophilia (principal); I48.91 Unspecified atrial fibrillation; G89.29 Other chronic pain; F41.9 Anxiety disorder, unspecified; Z86.73 Personal history of transient ischemic attack (TIA), and cerebral infarction without residual deficits; Z90.89 Acquired absence of other organs; Z98.890 Other specified postprocedural states; Z60.2 Problems related to living alone; Z79.899 Other long term (current) drug therapy; W19.XXXA Unspecified fall, initial encounter; Y93.89 Activity, other specified; Y92.89 Other specified places as the place of occurrence of the external cause; Y99.8 Other external cause status; S09.90XA Unspecified injury of head, initial encounter; S06.0X0A Concussion without loss of consciousness, initial encounter; S16.1XXA Strain of muscle, fascia and tendon at neck level, initial encounter
CPT/HCPCS: 70450; 72125; 99284

== ENCOUNTER 2023-06-22 17:06 | Emergency (ER) | payer MEDICARE ==
[~2023-06-22] VITALS: Ht 170.2 cm; Wt 78.2 kg
[~2023-06-22 17:06] MED LIST changes: +CELE-85 PO; -CELE200C PO; -COU3T PO; +DILT-35 PO; -DILT120C52 PO; +ESTR42.510 VG; -FLEC100T PO; -LOP25T PO; +METO25TA6 PO; +WARF3TAB56 PO; -metamucil
[2023-06-22 17:19] VITALS: TEMP 98.5
[2023-06-22 18:10] LABS: BASOPHILS # (AUTO) 0.1 X10'3 (0-0.2); BASOPHILS % (AUTO) 0.6 % (0-1); EOSINOPHILS # (AUTO) 0.5 X10'3 (0-0.9); HEMATOCRIT 41.7 % (35.0-45.0); LYMPHOCYTES # (AUTO) 1.5 X10'3 (1.1-4.8); LYMPHOCYTES % (AUTO) 14.1 % (21-51); MEAN CORPUSCULAR HEMOGLOBIN 30.5 PG (27.0-31.0); MEAN CORPUSCULAR HGB CONC 33.7 g/dL (33.0-36.5); MEAN CORPUSCULAR VOLUME 90.4 FL (78-98); MEAN PLATELET VOLUME 8.2 FL (7.4-10.4); MONOCYTES # (AUTO) 0.8 X10'3 (0-0.9); MONOCYTES % (AUTO) 7.6 % (2-12); NEUTROPHILS # (AUTO) 7.6 X10'3 (1.8-7.7); NEUTROPHILS % (AUTO) 72.7 % (42-75); PLATELET COUNT 188 X10'3 (140-440); RED BLOOD COUNT 4.61 X10'6 (4.20-5.60); RED CELL DISTRIBUTION WIDTH 14.8 % (11.5-14.5); WHITE BLOOD COUNT 10.5 X10'3 (4.5-11.0)
[2023-06-22 18:16] LABS: ALANINE AMINOTRANSFERASE 21 U/L (12-78); ALBUMIN 3.1 G/DL (3.4-5.0); ALBUMIN/GLOBULIN RATIO 0.8 (1.1-1.5); ALKALINE PHOSPHATASE 91 IU/L (46-116); ANION GAP 8 (8-16); ASPARTATE AMINO TRANSFERASE 20 U/L (10-37); BILIRUBIN,TOTAL 0.6 MG/DL (0.1-1.0); BLOOD UREA NITROGEN 36 MG/DL (7-18); CALCIUM 9.5 MG/DL (8.5-10.1); CHLORIDE 103 MMOL/L (99-107); GLUCOSE 107 MG/DL (70-104); POTASSIUM 4.8 MMOL/L (3.5-5.1); SODIUM 138 MMOL/L (135-145); TOTAL CARBON DIOXIDE 26.7 MMOL/L (24-32); TOTAL PROTEIN 6.9 G/DL (6.4-8.2); eCRCL 44 ML/MIN; eGFR 60 ML/MIN
[2023-06-22 18:24] LABS: PRO BRAIN NATRIURETIC PEPTIDE 2529 PG/ML (0-450)
[2023-06-22] MEDS ORDERED: normal saline 1000ml 1,000 ML IV ONE (19:30)
--- NOTE | 2023-06-22 20:06 | NUR ---
VASC PAGED AT [id number]
[2023-06-22] MEDS ORDERED: SULF1TAB49 PO (22:06)
[2023-06-22] MEDS ORDERED: CLIN-97 PO (22:06)
--- NOTE | 2023-06-22 22:12 | NUR ---
call placed to [facility] to arrange transport home
--- NOTE | 2023-06-22 22:28 | NUR ---
recieved call from facility. facility arranged transport with [facility] with 30 min eta. requesting nurse to fax PCS to [facility].
[2023-06-22 22:51] VITALS: BP 123/82; PULSE 86; RESP 18; O2SAT 94
== END 2023-06-22 22:52 ==
LOC: ER 17:07
DX: R60.0 Localized edema (principal); L03.116 Cellulitis of left lower limb; L03.115 Cellulitis of right lower limb; I48.91 Unspecified atrial fibrillation; I10 Essential (primary) hypertension; E03.9 Hypothyroidism, unspecified; G89.29 Other chronic pain; Z87.19 Personal history of other diseases of the digestive system; Z79.899 Other long term (current) drug therapy; Z79.2 Long term (current) use of antibiotics
CPT/HCPCS: 36415; 71045; 80053; 83880; 84145; 85025; 93005; 93970; 96360; 99285; J7030

== ENCOUNTER 2023-08-15 11:26 | Inpatient (IN) | payer MEDICARE ==
[~2023-08-15] VITALS: Ht 170.2 cm; Wt 79.5 kg
[~2023-08-15 11:26] MED LIST changes: +CELE-127 PO; -CELE-85 PO; +CLIN-97 PO
[2023-08-15 12:03] LABS: BASOPHILS # (AUTO) 0.1 X10'3 (0-0.2); BASOPHILS % (AUTO) 0.4 % (0-1); EOSINOPHILS # (AUTO) 0.1 X10'3 (0-0.9); EOSINOPHILS % (AUTO) 0.4 % (0-6); HEMATOCRIT 39.5 % (35.0-45.0); HEMOGLOBIN 13.1 g/dl (12.0-16.0); LYMPHOCYTES # (AUTO) 1.1 X10'3 (1.1-4.8); LYMPHOCYTES % (AUTO) 3.8 % (21-51); MEAN CORPUSCULAR HEMOGLOBIN 30.3 PG (27.0-31.0); MEAN CORPUSCULAR HGB CONC 33.2 g/dL (33.0-36.5); MEAN CORPUSCULAR VOLUME 91.1 FL (78-98); MEAN PLATELET VOLUME 8.1 FL (7.4-10.4); MONOCYTES # (AUTO) 1.6 X10'3 (0-0.9); MONOCYTES % (AUTO) 5.5 % (2-12); NEUTROPHILS # (AUTO) 25.9 X10'3 (1.8-7.7); NEUTROPHILS % (AUTO) 89.9 % (42-75); PLATELET COUNT 219 X10'3 (140-440); RED BLOOD COUNT 4.34 X10'6 (4.20-5.60); RED CELL DISTRIBUTION WIDTH 14.3 % (11.5-14.5)
[2023-08-15 12:06] LABS: WHITE BLOOD COUNT 28.8 X10'3 (4.5-11.0)
[2023-08-15] MEDS ORDERED: normal saline 1000ml 1,000 ML IV ONE (12:10)
[2023-08-15 12:19] LABS: ALANINE AMINOTRANSFERASE 11 U/L (12-78); ALBUMIN 2.6 G/DL (3.4-5.0); ALBUMIN/GLOBULIN RATIO 0.6 (1.1-1.5); ALKALINE PHOSPHATASE 92 IU/L (46-116); ANION GAP 8 (8-16); ASPARTATE AMINO TRANSFERASE 15 U/L (10-37); BILIRUBIN,TOTAL 0.5 MG/DL (0.1-1.0); BLOOD UREA NITROGEN 26 MG/DL (7-18); BUN/CREATININE RATIO 25.2 (10.0-20.0); CALCIUM 9.4 MG/DL (8.5-10.1); CHLORIDE 96 MMOL/L (99-107); CREATININE 1.03 MG/DL (0.40-0.90); GLUCOSE 147 MG/DL (70-104); POTASSIUM 3.6 MMOL/L (3.5-5.1); SODIUM 130 MMOL/L (135-145); TOTAL CARBON DIOXIDE 26.1 MMOL/L (24-32); TOTAL PROTEIN 6.9 G/DL (6.4-8.2); eCRCL 39 ML/MIN; eGFR 51 ML/MIN
[2023-08-15] MEDS ORDERED: piperacillin/tazo 4.5gm/100ml 100 ML IV SCH (12:20)
[2023-08-15 12:35] LABS: TOTAL CELLS COUNTED 100
[2023-08-15 12:36] LABS: PLATELET ESTIMATE NORMAL
[2023-08-15 12:43] LABS: BILIRUBIN,URINE NEGATIVE (Neg); CLARITY,URINE CLEAR (Clear); COLOR,URINE YELLOW (Yellow); GLUCOSE, URINE NEGATIVE (Neg); KETONES,URINE NEGATIVE (Neg); LEUKOCYTE ESTERASE ,URINE TRACE (Neg); NITRITES, URINE NEGATIVE (Neg); OCCULT BLOOD,URINE TRACE-INTACT (Neg); PH,URINE 5.5 (4.8-8.0); PROTEIN,URINE TRACE mg/dl (Neg); UROBILINOGEN,URINE 0.2 E.U/dL (0.2-1.0)
[2023-08-15 12:48] LABS: UA COLLECTION TYPE CLN CATCH MIDSTREAM
[2023-08-15 12:49] LABS: BACTERIA,URINE 1+ /HPF (Neg); MUCUS STRANDS FEW /LPF (Neg); RBC,URINE 0-2 /HPF (0-2); SQUAMOUS EPITHELIAL CELL,UR MODERATE /LPF (FEW); WBC CLUMPS,URINE FEW /HPF (NEGATIVE)
[2023-08-15 12:50] LABS: TRANSITIONAL EPI CELLS,URINE FEW /HPF; WBC,URINE 30-50 /HPF (0-4); YEAST FEW /HPF (NEGATIVE)
[2023-08-15] MEDS: vancomycin/NS 1 GM ADD-VANTAGE 250 ML X 1 DOSE IV SCH (12:58)
[2023-08-15] MEDS ORDERED: acetaminophen 325mg tablet PO PRN ×2 (15:50)
[2023-08-15] MEDS ORDERED: morphine 2 MG/ML inj. syringe IV PRN ×2 (15:50)
[2023-08-15] MEDS ORDERED: magnesium hydroxide 30ml (MOM) UD suspension PO PRN (15:50)
[2023-08-15] MEDS ORDERED: mag hydrox/Alum hydrox/simeth 30ml oral suspension PO PRN (15:50)
[2023-08-15 16:06] LABS: PROTHROMBIN TIME 30.1 SECONDS (9.0-12.0)
[2023-08-15] MEDS ORDERED: ACET325T58 PO (17:36)
[2023-08-15] MEDS ORDERED: CEFT500V5 IM (17:37)
[2023-08-15] MEDS ORDERED: IPRA3AMP31 NEB (17:39)
[2023-08-15] MEDS ORDERED: PRED20TA PO (17:40)
[2023-08-15] MEDS ORDERED: HYDR-3972 PO (17:42)
[2023-08-15] MEDS ORDERED: FURO20TA4 PO (17:43)
[2023-08-15] MEDS ORDERED: METO-384 PO (17:44)
[2023-08-15] MEDS ORDERED: MAGN400O6 PO (17:45)
[2023-08-15] MEDS ORDERED: GUAI600T45 PO (17:46)
[2023-08-15] MEDS ORDERED: POTA8TAB69 PO (17:47)
[2023-08-15] MEDS ORDERED: PSYL575P22 PO (17:48)
[2023-08-15] MEDS ORDERED: DICL20GE TOP (17:50)
[2023-08-15] MEDS ORDERED: WARF2.5T82 PO (17:51)
--- NOTE | 2023-08-15 18:56 | NUR ---
Just informed that the patient has C diff. school supervisor Rosa made aware.
[2023-08-15 19:45] VITALS: BP 166/86; PULSE 96; RESP 16; TEMP 97.8; O2SAT 98
[2023-08-15] MEDS ORDERED: vancomycin/NS 1 GM ADD-VANTAGE 250 ML IV SCH (20:00)
[2023-08-15] MEDS: docusate sod 100mg capsule PO SCH (20:00)
[2023-08-15] MEDS: HYDROcodone/acetaminophen 5mg/325mg tablet PO PRN (22:50)
[2023-08-15] MEDS: ondansetron/PF 4mg/2ml inj IV PRN (22:52)
--- NOTE | 2023-08-15 23:50 | NUR ---
Patient in room ORTHO 4021. I have received report from RODRIGO Arteaga and had the opportunity to ask questions and assume patient care.
[2023-08-16] VITALS (10 sets, daily range): BP systolic 87–111; BP diastolic 44–57; PULSE 96–136; RESP 15–22; TEMP 97.5–98.5; O2SAT 94–99
--- NOTE | 2023-08-16 00:15 | NUR ---
pt arrived via gurney. transferred to bed. oriented to room. sabino care provided. call light in reach.
[2023-08-16] MEDS: normal saline 1000ml 1,000 ML IV SCH ×2 (01:00→04:05)
[2023-08-16] MEDS ORDERED: metoprolol tartrate 50mg tablet PO ONE (05:00)
--- NOTE | 2023-08-16 05:05 | NUR ---
I INFORMED dR. Calvillo RE HR AIB rvr 150-160'S HE ORDRED METOPROLOL SHE TAKES AT HOME X1 AND RESUME DILTIAZEM.
[2023-08-16 06:03] LABS: ALBUMIN 2.2 G/DL (3.4-5.0); ANION GAP 5 (8-16); BLOOD UREA NITROGEN 24 MG/DL (7-18); CALCIUM 8.9 MG/DL (8.5-10.1); CHLORIDE 102 MMOL/L (99-107); GLUCOSE 119 MG/DL (70-104); POTASSIUM 3.5 MMOL/L (3.5-5.1); SODIUM 134 MMOL/L (135-145); TOTAL CARBON DIOXIDE 27.1 MMOL/L (24-32); eCRCL 40 ML/MIN; eGFR 53 ML/MIN
[2023-08-16 06:10] LABS: PROTHROMBIN TIME 39.8 SECONDS (9.0-12.0)
[2023-08-16 06:11] LABS: BASOPHILS # (AUTO) 0.1 X10'3 (0-0.2); BASOPHILS % (AUTO) 0.3 % (0-1); EOSINOPHILS # (AUTO) 0.2 X10'3 (0-0.9); EOSINOPHILS % (AUTO) 0.8 % (0-6); HEMATOCRIT 37.2 % (35.0-45.0); HEMOGLOBIN 12.2 g/dl (12.0-16.0); LYMPHOCYTES # (AUTO) 1.1 X10'3 (1.1-4.8); LYMPHOCYTES % (AUTO) 3.6 % (21-51); MEAN CORPUSCULAR HGB CONC 32.8 g/dL (33.0-36.5); MEAN CORPUSCULAR VOLUME 91.5 FL (78-98); MEAN PLATELET VOLUME 8.1 FL (7.4-10.4); MONOCYTES # (AUTO) 1.8 X10'3 (0-0.9); MONOCYTES % (AUTO) 6.1 % (2-12); NEUTROPHILS # (AUTO) 26.6 X10'3 (1.8-7.7); NEUTROPHILS % (AUTO) 89.2 % (42-75); PLATELET COUNT 246 X10'3 (140-440); RED BLOOD COUNT 4.06 X10'6 (4.20-5.60); RED CELL DISTRIBUTION WIDTH 13.8 % (11.5-14.5)
[2023-08-16 06:21] LABS: WHITE BLOOD COUNT 29.9 X10'3 (4.5-11.0)
--- NOTE | 2023-08-16 06:50 | NUR ---
Problems reprioritized. Patient report given, questions answered & plan of care reviewed with RODRIGO Luu.
[2023-08-16 07:38] LABS: TOTAL CELLS COUNTED 100
[2023-08-16 07:39] LABS: PLATELET ESTIMATE NORMAL
[2023-08-16] MEDS ORDERED: ESTRADIOL 0.01% VG SCH (07:55)
[2023-08-16] MEDS ORDERED: DICLOFENAC SODIUM 1% gel 1 APPLIC APPLIC TP PRN (07:55)
[2023-08-16] MEDS ORDERED: gabapentin 100mg capsule PO SCH (08:00)
[2023-08-16] MEDS: docusate sod 100mg capsule PO SCH ×2 (08:00→20:00)
[2023-08-16] MEDS ORDERED: CefTRIAXone/D5W-Rocephin 1gm 50 ML IV SCH (08:00)
[2023-08-16 08:41] LABS: HEMOGLOBIN A1C 6.2 % (4.5-6.2)
[2023-08-16 08:50] LABS: PRO BRAIN NATRIURETIC PEPTIDE 7284 PG/ML (0-450); THYROID STIMULATING HORMONE 2.35 ulU/ml (0.34-4.50)
[2023-08-16] MEDS: guaiFENesin ER 600mg tablet PO SCH ×2 (08:59→20:23)
[2023-08-16] MEDS: ALPRAZolam 0.5mg tablet PO SCH ×2 (08:59→20:23)
[2023-08-16] MEDS: sertraline 50mg tablet PO SCH (08:59)
[2023-08-16] MEDS: levoTHYROXINE 25mcg tablet PO SCH (09:00)
--- NOTE | 2023-08-16 09:38 | NUR ---
SALONI Crow regarding BP of 92/60 and heart rate in 120's. Pt has Cardizem 240mg ordered. Order received to give Cardizem dose and hold any other hypertensives. Will monitor BP and HR
[2023-08-16] MEDS: diltiazem CD 120mg capsule (once-daily) PO SCH (09:54)
--- NOTE | 2023-08-16 09:54 | NUR ---
Low chris consult: Pt presents with a chris score of 11 per EMR. Per RN physical assessment pt has a redness to groin from incontinence though not resulting in a wound care consult at this time per EMR. Will continue to monitor. Addendum: 08/16/23 at [address] Amended: Links added.
[2023-08-16] MEDS ORDERED: vancomycin 125mg/5ml ORAL solution 5ml UD oral syringe PO SCH (10:40)
[2023-08-16] MEDS: vancomycin/NS 1 GM ADD-VANTAGE 250 ML X 1 DOSE IV SCH (11:35)
[2023-08-16 13:16] LABS: C DIFF ANTIGEN POSITIVE (NEGATIVE); C DIFF SPECIMEN=DIARRHEA? ACCEPTABLE; C DIFFICILE TOXINS A&B POSITIVE (Neg)
--- NOTE | 2023-08-16 13:19 | NUR ---
Notified Dr. Crow that patient's stool came back CDIFF positive
--- NOTE | 2023-08-16 14:38 | NUR ---
PRESSURE ULCER EDUCATION: DEFINITION: A pressure ulcer is an area of skin that breaks down when you stay in one position too long. The constant pressure against the skin reduces the blood flow to that area and the affected tissue dies. CAUSES: "Being bedridden or in a wheelchair "Fragile skin "Having a chronic condition, such as diabetes or vascular disease "Inability to move certain parts of your body without assistance "Older age "Incontinence of urine or stool SYMPTOMS: "A reddened area that DOES NOT turn white when pressed on - this can be the beginning of a pressure ulcer "A blister, deep sore or a crater - these can be advanced pressure ulcers FIRST AID: "Relieve the pressure on this area "Keep the area clean and dry "Call your primary doctor if you see any of the above symptoms "DO NOT massage the area "DO NOT use a donut shaped or ring shaped pillow- these actually interfere with the blood flow and cause complications PREVENTION: "Check for pressure ulcers everyday "Change position at least every two hours to relieve pressure "Use items that help relieve pressure- pillows, sheepskin, foam padding, and powders. "Keep skin clean and dry "Eat healthy well balanced meals "Exercise daily IF YOU SEE ANY OF THESE SYMPTOMS WHILE IN THE HOSPITAL - TELL YOUR NURSE IMMEDIATELY. IF YOU SEE ANY OF THESE SYMPTOMS WHILE AT HOME OR HAVE ANY QUESTIONS OR CONCERNS ABOUT PRESSURE ULCERS - CALL YOUR PRIMARY DOCTOR IMMEDIATELY. Addendum: 08/16/23 at 1438 by Mesha Huff LVN Amended: Links added.
[2023-08-16] MEDS: HYDROcodone/acetaminophen 5mg/325mg tablet PO PRN (15:36)
[2023-08-16] MEDS: ondansetron/PF 4mg/2ml inj IV PRN (16:09)
[2023-08-16] MEDS: ipratropium/albuterol 3ml nebule NEB SCH ×2 (18:00→21:51)
--- NOTE | 2023-08-16 18:25 | NUR ---
Problems reprioritized. Patient report given, questions answered & plan of care reviewed with Noelle.
[2023-08-16] MEDS: vancomycin 125mg/5ml ORAL solution 5ml UD oral syringe PO SCH ×2 (18:33→23:45)
[2023-08-16] MEDS: gabapentin 100mg capsule PO SCH (20:24)
[2023-08-17] VITALS (12 sets, daily range): BP systolic 91–110; BP diastolic 38–48; PULSE 83–113; RESP 15–20; TEMP 97.5–98.8; O2SAT 93–97
[2023-08-17] MEDS: ipratropium/albuterol 3ml nebule NEB SCH ×4 (02:00→19:56)
[2023-08-17] MEDS: vancomycin 125mg/5ml ORAL solution 5ml UD oral syringe PO SCH ×3 (06:06→19:43)
[2023-08-17 07:42] LABS: BASOPHILS # (AUTO) 0.1 X10'3 (0-0.2); BASOPHILS % (AUTO) 0.3 % (0-1); EOSINOPHILS # (AUTO) 0.5 X10'3 (0-0.9); EOSINOPHILS % (AUTO) 1.8 % (0-6); HEMATOCRIT 36.4 % (35.0-45.0); HEMOGLOBIN 11.7 g/dl (12.0-16.0); LYMPHOCYTES # (AUTO) 1.5 X10'3 (1.1-4.8); MEAN CORPUSCULAR HEMOGLOBIN 29.9 PG (27.0-31.0); MEAN CORPUSCULAR HGB CONC 32.3 g/dL (33.0-36.5); MEAN CORPUSCULAR VOLUME 92.7 FL (78-98); MONOCYTES # (AUTO) 1.2 X10'3 (0-0.9); MONOCYTES % (AUTO) 4.8 % (2-12); NEUTROPHILS # (AUTO) 22.5 X10'3 (1.8-7.7); NEUTROPHILS % (AUTO) 87.1 % (42-75); PLATELET COUNT 239 X10'3 (140-440); RED BLOOD COUNT 3.93 X10'6 (4.20-5.60); RED CELL DISTRIBUTION WIDTH 13.9 % (11.5-14.5)
[2023-08-17 07:45] LABS: INR 3.8 INR; PROTHROMBIN TIME 37.5 SECONDS (9.0-12.0)
[2023-08-17 07:52] LABS: WHITE BLOOD COUNT 25.8 X10'3 (4.5-11.0)
[2023-08-17 08:06] LABS: BURR CELLS 1+; PLATELET ESTIMATE NORMAL; TOTAL CELLS COUNTED 100; TOXIC GRANULATION 1+
[2023-08-17] MEDS: guaiFENesin ER 600mg tablet PO SCH ×2 (08:17→19:43)
[2023-08-17] MEDS: ALPRAZolam 0.5mg tablet PO SCH ×2 (08:17→19:43)
[2023-08-17] MEDS: levoTHYROXINE 25mcg tablet PO SCH (08:17)
[2023-08-17] MEDS: docusate sod 100mg capsule PO SCH ×2 (08:17→19:48)
[2023-08-17] MEDS: gabapentin 100mg capsule PO SCH ×2 (08:17→19:43)
[2023-08-17] MEDS: metoprolol succinate 25mg (24-HOUR) SR. Tablet PO SCH (08:18)
[2023-08-17] MEDS: diltiazem CD 120mg capsule (once-daily) PO SCH (08:18)
[2023-08-17] MEDS: sertraline 50mg tablet PO SCH (08:18)
[2023-08-17 08:29] LABS: ALBUMIN 2.1 G/DL (3.4-5.0); ANION GAP 8 (8-16); BLOOD UREA NITROGEN 18 MG/DL (7-18); BUN/CREATININE RATIO 21.2 (10.0-20.0); CALCIUM 9.1 MG/DL (8.5-10.1); CHLORIDE 102 MMOL/L (99-107); CREATININE 0.85 MG/DL (0.40-0.90); GLUCOSE 86 MG/DL (70-104); SODIUM 130 MMOL/L (135-145); TOTAL CARBON DIOXIDE 19.8 MMOL/L (24-32); eCRCL 47 ML/MIN; eGFR 64 ML/MIN
[2023-08-17] MEDS: furosemide 20 MG/2 ML vial IV SCH (08:32)
[2023-08-17 08:43] LABS: POTASSIUM 3.7 MMOL/L (3.5-5.1)
--- NOTE | 2023-08-17 09:41 | NUR ---
Patient in room ORTHO 4021. I have received report from HAYLEE PINEDA and had the opportunity to ask questions and assume patient care.
--- NOTE | 2023-08-17 11:00 | NUR ---
SHOWED THE MD RESIDENT OF EKG RESULTS, AND THE PT. HAS CHEST PAIN WHEN COUGHING.
[2023-08-17] MEDS: HYDROcodone/acetaminophen 5mg/325mg tablet PO PRN (14:27)
--- NOTE | 2023-08-17 14:44 | NUR ---
FAXED DIETARY TWICE ABOUT THE HIGH ENSURE PROTEIN SHAKE. STILL WAITING ON IT. Addendum: 08/17/23 at 1815 by Lars Fried RN FAXED OVER DIETARY FOR THE 3RD TIME FOR ENSURE HIGH PROTEIN SHAKE. STILL WAITING ON IT. NIGHT NURSE NOTIFIED.
[2023-08-17] MEDS: lactose-reduced food (Ensure High Protein) 237ml bottle PO SCH (18:00)
--- NOTE | 2023-08-17 18:15 | NUR ---
Problems reprioritized. Patient report given TO PRUDENCE RN, questions answered & plan of care reviewed with .
[2023-08-18] VITALS (11 sets, daily range): BP systolic 105–120; BP diastolic 49–63; PULSE 70–111; RESP 16–18; TEMP 97.6–97.7; O2SAT 93–99
[2023-08-18] MEDS: vancomycin 125mg/5ml ORAL solution 5ml UD oral syringe PO SCH ×5 (01:15→23:49)
[2023-08-18] MEDS: ipratropium/albuterol 3ml nebule NEB SCH ×4 (02:00→20:45)
--- NOTE | 2023-08-18 06:24 | NUR ---
Patient in room ORTHO 4021. I have received report from Kiki and had the opportunity to ask questions and assume patient care.
[2023-08-18 06:29] LABS: BASOPHILS # (AUTO) 0.1 X10'3 (0-0.2); BASOPHILS % (AUTO) 0.7 % (0-1); EOSINOPHILS # (AUTO) 0.6 X10'3 (0-0.9); HEMATOCRIT 35.4 % (35.0-45.0); HEMOGLOBIN 11.6 g/dl (12.0-16.0); LYMPHOCYTES # (AUTO) 2.1 X10'3 (1.1-4.8); LYMPHOCYTES % (AUTO) 12.7 % (21-51); MEAN CORPUSCULAR HEMOGLOBIN 29.8 PG (27.0-31.0); MEAN CORPUSCULAR HGB CONC 32.8 g/dL (33.0-36.5); MEAN CORPUSCULAR VOLUME 90.8 FL (78-98); MEAN PLATELET VOLUME 8.1 FL (7.4-10.4); MONOCYTES # (AUTO) 1.2 X10'3 (0-0.9); MONOCYTES % (AUTO) 7.4 % (2-12); NEUTROPHILS # (AUTO) 12.2 X10'3 (1.8-7.7); NEUTROPHILS % (AUTO) 75.2 % (42-75); PLATELET COUNT 258 X10'3 (140-440); RED BLOOD COUNT 3.89 X10'6 (4.20-5.60); WHITE BLOOD COUNT 16.2 X10'3 (4.5-11.0)
[2023-08-18 06:34] LABS: INR 2.7 INR; PROTHROMBIN TIME 26.9 SECONDS (9.0-12.0)
[2023-08-18 06:47] LABS: ALBUMIN 2.1 G/DL (3.4-5.0); ANION GAP 5 (8-16); BLOOD UREA NITROGEN 20 MG/DL (7-18); BUN/CREATININE RATIO 23.3 (10.0-20.0); CHLORIDE 102 MMOL/L (99-107); CREATININE 0.86 MG/DL (0.40-0.90); GLUCOSE 110 MG/DL (70-104); POTASSIUM 3.4 MMOL/L (3.5-5.1); SODIUM 136 MMOL/L (135-145); eCRCL 47 ML/MIN; eGFR 63 ML/MIN
[2023-08-18] MEDS: lactose-reduced food (Ensure High Protein) 237ml bottle PO SCH ×4 (08:00→17:48)
[2023-08-18] MEDS: docusate sod 100mg capsule PO SCH ×2 (08:00→20:00)
[2023-08-18] MEDS: levoTHYROXINE 25mcg tablet PO SCH (08:56)
[2023-08-18] MEDS: diltiazem CD 120mg capsule (once-daily) PO SCH (08:56)
[2023-08-18] MEDS: gabapentin 100mg capsule PO SCH ×2 (08:56→20:14)
[2023-08-18] MEDS: furosemide 20 MG/2 ML vial IV SCH (08:56)
[2023-08-18] MEDS: guaiFENesin ER 600mg tablet PO SCH ×2 (08:56→20:14)
[2023-08-18] MEDS: sertraline 50mg tablet PO SCH (08:57)
[2023-08-18] MEDS: ALPRAZolam 0.5mg tablet PO SCH ×2 (08:57→20:14)
[2023-08-18] MEDS: metoprolol succinate 25mg (24-HOUR) SR. Tablet PO SCH (08:57)
[2023-08-18] MEDS ORDERED: VANCOMYCIN LEVEL IV ONE (12:30)
[2023-08-18] MEDS ORDERED: potassium Cl 20 mEq SR tablet PO PRN (13:30)
[2023-08-18] MEDS ORDERED: magnesium 2GM in 50ml NS 50 ML IV PRN (13:30)
[2023-08-18] MEDS ORDERED: magnesium 4gm in 100ml NS 100 ML IV PRN (13:30)
[2023-08-18] MEDS ORDERED: magnesium Cl slow-release 64mg tablet PO PRN (13:30)
[2023-08-18] MEDS ORDERED: potassium Cl 40MEQ/1/2NS 520ml 520 ML IV PRN (13:30)
[2023-08-18] MEDS: potassium Cl 20 mEq SR tablet PO PRN ×2 (13:39→17:44)
--- NOTE | 2023-08-18 18:23 | NUR ---
Problems reprioritized. Patient report given, questions answered & plan of care reviewed with Dominique.
[2023-08-18] MEDS: K and/or MAG REPLACEMENT MC SCH (20:00)
[2023-08-18] MEDS: HYDROcodone/acetaminophen 5mg/325mg tablet PO PRN (20:16)
[2023-08-18] MEDS ORDERED: warfarin 1mg tablet PO ONE (21:00)
[2023-08-19] VITALS (12 sets, daily range): BP systolic 99–125; BP diastolic 46–60; PULSE 91–115; RESP 15–20; TEMP 97.5–98.5; O2SAT 96–99
[2023-08-19] MEDS: ipratropium/albuterol 3ml nebule NEB SCH ×4 (02:47→20:17)
[2023-08-19] MEDS: vancomycin 125mg/5ml ORAL solution 5ml UD oral syringe PO SCH ×3 (05:16→17:25)
--- NOTE | 2023-08-19 06:00 | NUR ---
Patient in room ORTHO 4021. I have received report from Dominique and had the opportunity to ask questions and assume patient care.
--- NOTE | 2023-08-19 06:06 | NUR ---
Problems reprioritized. Patient report given, questions answered & plan of care reviewed with Shanika WALLACE.
[2023-08-19 07:24] LABS: ALBUMIN 2.2 G/DL (3.4-5.0); ANION GAP 2 (8-16); BLOOD UREA NITROGEN 15 MG/DL (7-18); BUN/CREATININE RATIO 18.1 (10.0-20.0); CALCIUM 9.2 MG/DL (8.5-10.1); CHLORIDE 103 MMOL/L (99-107); CREATININE 0.83 MG/DL (0.40-0.90); GLUCOSE 116 MG/DL (70-104); INR 1.7 INR; POTASSIUM 3.9 MMOL/L (3.5-5.1); PROTHROMBIN TIME 17.4 SECONDS (9.0-12.0); SODIUM 137 MMOL/L (135-145); TOTAL CARBON DIOXIDE 31.9 MMOL/L (24-32); eCRCL 48 ML/MIN; eGFR 65 ML/MIN
[2023-08-19 07:30] LABS: BASOPHILS # (AUTO) 0.1 X10'3 (0-0.2); BASOPHILS % (AUTO) 0.8 % (0-1); EOSINOPHILS # (AUTO) 0.7 X10'3 (0-0.9); EOSINOPHILS % (AUTO) 6.3 % (0-6); HEMATOCRIT 35.9 % (35.0-45.0); LYMPHOCYTES # (AUTO) 1.9 X10'3 (1.1-4.8); LYMPHOCYTES % (AUTO) 16.2 % (21-51); MEAN CORPUSCULAR HEMOGLOBIN 30.2 PG (27.0-31.0); MEAN CORPUSCULAR HGB CONC 33.3 g/dL (33.0-36.5); MEAN CORPUSCULAR VOLUME 90.8 FL (78-98); MEAN PLATELET VOLUME 7.7 FL (7.4-10.4); MONOCYTES # (AUTO) 1.1 X10'3 (0-0.9); NEUTROPHILS % (AUTO) 67.7 % (42-75); PLATELET COUNT 279 X10'3 (140-440); RED BLOOD COUNT 3.96 X10'6 (4.20-5.60); WHITE BLOOD COUNT 11.8 X10'3 (4.5-11.0)
[2023-08-19] MEDS: docusate sod 100mg capsule PO SCH ×2 (08:00→20:00)
[2023-08-19] MEDS: K and/or MAG REPLACEMENT MC SCH ×2 (08:00→20:00)
[2023-08-19] MEDS: furosemide 20 MG/2 ML vial IV SCH (08:00)
[2023-08-19] MEDS: ALPRAZolam 0.5mg tablet PO SCH ×2 (08:39→20:16)
[2023-08-19] MEDS: guaiFENesin ER 600mg tablet PO SCH ×2 (08:39→20:16)
[2023-08-19] MEDS: gabapentin 100mg capsule PO SCH ×2 (08:40→20:16)
[2023-08-19] MEDS: levoTHYROXINE 25mcg tablet PO SCH (08:41)
[2023-08-19] MEDS: sertraline 50mg tablet PO SCH (08:41)
[2023-08-19] MEDS: diltiazem CD 120mg capsule (once-daily) PO SCH (08:42)
[2023-08-19] MEDS: metoprolol succinate 25mg (24-HOUR) SR. Tablet PO SCH (08:42)
[2023-08-19 09:38] LABS: TOTAL CELLS COUNTED 100
[2023-08-19 09:40] LABS: PLATELET ESTIMATE NORMAL; POIKILOCYTOSIS FEW
[2023-08-19] MEDS: lactose-reduced food (Ensure High Protein) 237ml bottle PO SCH ×2 (12:37→17:24)
--- NOTE | 2023-08-19 16:34 | NUR ---
student charting reviewed by instructor.
--- NOTE | 2023-08-19 18:15 | NUR ---
Problems reprioritized. Patient report given, questions answered & plan of care reviewed with
[2023-08-19] MEDS ORDERED: warfarin 2.5mg tablet PO ONE (21:00)
[2023-08-20] MEDS: vancomycin 125mg/5ml ORAL solution 5ml UD oral syringe PO SCH ×4 (00:06→12:00)
[2023-08-20 02:44] VITALS: PULSE 110; RESP 16; O2SAT 96
[2023-08-20] MEDS: ipratropium/albuterol 3ml nebule NEB SCH ×2 (02:44→07:28)
[2023-08-20 02:55] VITALS: PULSE 105; RESP 16
[2023-08-20 06:36] LABS: INR 1.6 INR; PROTHROMBIN TIME 16.6 SECONDS (9.0-12.0)
--- NOTE | 2023-08-20 06:44 | NUR ---
Problems reprioritized. Patient report given, questions answered & plan of care reviewed with Georgina. Addendum: 08/20/23 at 0644 by Marco Redd RN Amended: Links added.
[2023-08-20 06:49] LABS: ALBUMIN 2.3 G/DL (3.4-5.0); ANION GAP 4 (8-16); BLOOD UREA NITROGEN 13 MG/DL (7-18); BUN/CREATININE RATIO 17.3 (10.0-20.0); CALCIUM 9.2 MG/DL (8.5-10.1); CHLORIDE 102 MMOL/L (99-107); CREATININE 0.75 MG/DL (0.40-0.90); GLUCOSE 108 MG/DL (70-104); POTASSIUM 3.5 MMOL/L (3.5-5.1); PRO BRAIN NATRIURETIC PEPTIDE 2965 PG/ML (0-450); SODIUM 136 MMOL/L (135-145); TOTAL CARBON DIOXIDE 30.4 MMOL/L (24-32); eCRCL 53 ML/MIN; eGFR 73 ML/MIN
[2023-08-20 06:52] LABS: BASOPHILS # (AUTO) 0.1 X10'3 (0-0.2); BASOPHILS % (AUTO) 0.7 % (0-1); EOSINOPHILS # (AUTO) 0.4 X10'3 (0-0.9); HEMATOCRIT 35.7 % (35.0-45.0); HEMOGLOBIN 11.9 g/dl (12.0-16.0); LYMPHOCYTES # (AUTO) 1.9 X10'3 (1.1-4.8); MEAN CORPUSCULAR HEMOGLOBIN 30.1 PG (27.0-31.0); MEAN CORPUSCULAR HGB CONC 33.4 g/dL (33.0-36.5); MEAN CORPUSCULAR VOLUME 90.3 FL (78-98); MEAN PLATELET VOLUME 7.7 FL (7.4-10.4); MONOCYTES # (AUTO) 0.9 X10'3 (0-0.9); MONOCYTES % (AUTO) 6.8 % (2-12); NEUTROPHILS # (AUTO) 10.3 X10'3 (1.8-7.7); NEUTROPHILS % (AUTO) 75.5 % (42-75); PLATELET COUNT 295 X10'3 (140-440); RED BLOOD COUNT 3.96 X10'6 (4.20-5.60); RED CELL DISTRIBUTION WIDTH 13.9 % (11.5-14.5); WHITE BLOOD COUNT 13.6 X10'3 (4.5-11.0)
[2023-08-20 07:00] VITALS: BP 112/61; PULSE 51; RESP 15; TEMP 97.8; O2SAT 96
--- NOTE | 2023-08-20 07:00 | NUR ---
Patient in room ORTHO 4021. I have received report from Marc WALLACE and had the opportunity to ask questions and assume patient care.
[2023-08-20 07:29] VITALS: PULSE 80; RESP 18; O2SAT 95
[2023-08-20 07:36] VITALS: PULSE 110; RESP 16
[2023-08-20] MEDS: docusate sod 100mg capsule PO SCH (08:00)
[2023-08-20] MEDS ORDERED: diltiazem SR 60mg capsule (twice daily) PO SCH (08:00)
[2023-08-20] MEDS: K and/or MAG REPLACEMENT MC SCH (08:00)
[2023-08-20] MEDS: furosemide 20 MG/2 ML vial IV SCH (08:10)
[2023-08-20] MEDS: metoprolol succinate 25mg (24-HOUR) SR. Tablet PO SCH (08:12)
[2023-08-20] MEDS: ALPRAZolam 0.5mg tablet PO SCH (08:12)
[2023-08-20] MEDS: guaiFENesin ER 600mg tablet PO SCH (08:13)
[2023-08-20] MEDS: gabapentin 100mg capsule PO SCH (08:23)
[2023-08-20] MEDS: sertraline 50mg tablet PO SCH (08:24)
[2023-08-20] MEDS: levoTHYROXINE 25mcg tablet PO SCH (08:24)
[2023-08-20] MEDS: lactose-reduced food (Ensure High Protein) 237ml bottle PO SCH (08:30)
[2023-08-20 09:21] LABS: PLATELET ESTIMATE NORMAL; TOTAL CELLS COUNTED 100
--- NOTE | 2023-08-20 14:10 | NUR ---
patient5 stooled x2 this am. Still is for Dc to [facility]. patient stated she was unhappy about this, but appeared confused stating that she just lost her house which was verified to have happened a year ago. Time spent with patient listening. Report called to Gilson PINEDA. patient DC to [facility] via [facility] in stable condition.
[2023-08-20] MEDS ORDERED: warfarin 3mg tablet PO ONE (21:00)
== END 2023-08-20 13:02 | DRG 871 ==
LOC: ER 11:26 → ED HOLD 15:50 → ORTHO 4S 08-16 00:15
PROVIDERS: ADMIT Internal Medicine; ATTEND Family Medicine
DX: A41.9 Sepsis, unspecified organism (principal); I50.31 Acute diastolic (congestive) heart failure; J96.01 Acute respiratory failure with hypoxia; A04.72 Enterocolitis due to Clostridium difficile, not specified as recurrent; N39.0 Urinary tract infection, site not specified; E87.1 Hypo-osmolality and hyponatremia; I48.19 Other persistent atrial fibrillation; E11.9 Type 2 diabetes mellitus without complications; Z20.822 Contact with and (suspected) exposure to COVID-19; I48.0 Paroxysmal atrial fibrillation; E03.9 Hypothyroidism, unspecified; I35.0 Nonrheumatic aortic (valve) stenosis; K74.60 Unspecified cirrhosis of liver; E86.0 Dehydration; I11.0 Hypertensive heart disease with heart failure; F41.9 Anxiety disorder, unspecified; G89.29 Other chronic pain; M54.9 Dorsalgia, unspecified; Z86.73 Personal history of transient ischemic attack (TIA), and cerebral infarction without residual deficits; Z79.899 Other long term (current) drug therapy; Z80.0 Family history of malignant neoplasm of digestive organs; Z85.6 Personal history of leukemia; Z80.6 Family history of leukemia; Z79.01 Long term (current) use of anticoagulants; Z83.3 Family history of diabetes mellitus
CPT/HCPCS: 36415; 71045; 80048; 80053; 81001; 83036; 83605; 83880; 84145; 84443; 85007; 85025; 85610; 87040; 87070; 87081; 87088; 87324; 87449; 87502; 87503; 87811; 93005; 93306; 94640; 94760; 96365; 96366; 96368; 96375; 99285; C1758; G0378; J0696; J1940; J2405; J2543; J3370; J7030